=== PATIENT | female | born 1950 | race Caucasian/White ===

== ENCOUNTER 2024-05-20 22:01 | Inpatient (IN) | payer MEDICARE, SELFPAY ==
[2024-05-20] VITALS (54 sets, daily range): BP systolic 70–136; BP diastolic 25–76
[2024-05-20] MEDS: NSS 1000 IV ×3 (16:17→23:48)
--- NOTE | 2024-05-20 16:19 | ED.GENMED ---
History of Present Illness
General
Chief Complaint: Abdominal Symptoms
Time Seen by Provider: 05/20/24 16:07
History of Present Illness
History of Present Illness:
73-year-old female with history of CKD, CVA, hypertension presenting to the emergency department for concern of 'bowel perforation '. Patient arrives from nursing facility where she had an outpatient CT of her abdomen completed on 05/10, resulted
today with concern of bowel perforation. Patient has a abdominal wound, dressed. She is a limited historian given prior history of CVA and suspected underlying dementia. No additional history obtained at this time.
Phy Exam
Physical Exam
Physical Exam:
General: Well-appearing, no clinical signs of dehydration, nontoxic and in no acute distress
HEENT: protecting airway
Neck: appears supple
CV: Normal heart rate, regular rhythm
Resp: No accessory muscle use, no increased work of breathing, lungs clear to auscultation bilaterally
Abd: Soft and non-distended, open abdominal wall wound, purulent drainage upon palpation.
Extremities: No deformities, no swelling, no erythema, pulses and sensation intact
Neuro: alert, disoriented to place and time
: deferred
Rectal: deferred
Psych: Normal affect
Skin: Intact
Course
Orders/Labs/Results
Orders:
Orders
05/20/24 Dinner
NPO
Allow oral meds: Yes
Allow clear liquids: Sips of Clears
05/20/24 16:07
Electrocardiogram (*1) Urgent
Reason for Study: Other
Other Reason for Exam: bowel perf
EKG- Treatment ONCE
05/20/24 16:08
CT Abd/pelvis W Iv Cont Urgent
Comment:
Reason For Exam: draining abdominal wound, unclear hx
05/20/24 16:14
0.9% Sodium Chloride 1000 ml [Nss] 1,000 ml IV BOLUS
05/20/24 16:18
CMP [Comprehensive Metabolic Panel] Urgent
Complete Blood Count/With Diff Urgent
Lactic Acid Q4H
Comment: CANCEL 2nd LACTIC ACID IF 1st LACTIC ACID IS LESS THAN 2
Manual Differential Urgent
PTT Urgent
Prothrombin Time Urgent
Troponin I Urgent
Blood Culture Q30M
NIDA Source: Blood/Venous
Specimen Description:
Blood Culture Q30M
NIDA Source: Blood/Venous
Specimen Description:
05/20/24 16:35
Straight Cath As Directed
Frequency: One time now
05/20/24 16:36
Urinalysis Reflex To Culture Urgent
Date Specimen was Collected: 05/20/24
Time Specimen was Collected: 16:35
05/20/24 17:13
0.9% Sodium Chloride 1000 ml [Nss] 1,000 ml IV BOLUS
05/20/24 19:31
NORepinephrine 4 MG/250 ML [Levophed] 4 mg in 250 ml .ROUTE .STK-MED
Piperacillin/Tazo 4.5 Gram [Zosyn] 4.5 gram in 100 ml IV NOW
05/20/24 19:45
NORepinephrine 4 MG/250 ML [Levophed] 4 mg in 250 ml IV PER PROTOCOL
Initial dose in mcg/min, then titrate:: 2
Titrate to keep:: MAP > 65 mmHg
Titrate by mcg/min:: 1-2 mcg/min
Frequency of titrations (minutes):: 5
Maximum dose in ICU in mcg/min:: 30
Maximum dose in IMU in mcg/min:: 8
Maximum dose in IVU in mcg/min:: 4
Begin to taper infusion when:: Remained at goal for 4hrs
Taper by mcg/min:: 1-2 mcg/min
Frequency of taper (minutes) if patient maintains goal:: 30
Taper to off?: Yes
If infusion off & no longer maintaining goal:: Contact Provider
05/20/24 20:16
Vancomycin [Vancocin] 1,500 mg 0.9% Sodium Chloride 500 ml [Nss] 500 ml IV NOW
05/20/24 21:26
Admit/Transfer Patient As Directed
Co-Sign Provider:
Level of Care: Inpatient admission
Assign to:: ICU
Physician / Group: ben
Diagnosis: sepsis associated abdominal wall hernia site
Reason for Hospitalization: sepsis associated abdominal wall hernia site
Expected length of stay greater than two midnights?: Yes
ELOS- Estimated Length of Stay in days: 2
I certify the patient meets the requirements for IP care: Yes
PRN Pain Medication Management As Directed
May give lesser potent ordered pain med per pt: Yes
preference::
Protocol:: Medication orders for pain may be administered in a
manner that supports deferring to patient preference
when the pt is:
- Requesting an ordered lesser potent pain medication.
Least to most potent pain medications are defined
as: acetaminophen < NSAID < tramadol < opioids
(morphine, oxycodone, hydromorphone).
- Requesting a lesser dose of the same medication IF
ORDERED.
- Requesting a less intrusive route of administration
if both routes are prescribed by the provider (PO <
IV).
05/20/24 21:27
Code Status As Directed
Resuscitation Status: Full Code
05/20/24 21:54
Code Status As Directed
Resuscitation Status: Do not resuscitate
Reached after discussion with pt or family/Healthcare POA: Yes
DNR Bracelet Application ONCE
05/20/24 22:00
Flush (0.9% Sodium Chloride) [Flush (Nss)] See Dose Instructions IV PER PROTOCOL
05/20/24 22:50
0.9% Sodium Chloride 1000 ml [Nss] 1,000 ml IV 80 mls/hr
Acetaminophen [Tylenol] 650 mg PO Q4HPRN PRN
Atorvastatin [Lipitor] 40 mg PO HS
Bisacodyl [Dulcolax] 10 mg RECTAL DAILYPRN PRN
Guaifenesin Solution [Robitussin] 100 mg PO Q6HPRN PRN
Magnesium Hydroxide [Milk of Magnesia] 30 ml PO [id number] PRN
Phosphate Enema [Fleet Phosphate Enema-Adult] 118 ml RECTAL DAILYPRN PRN
05/20/24 22:50
Activity As Directed
Activity Level: As Tolerated
Vital Signs As Directed
Frequency: Per unit guidelines
DX Deep Vein Thrombosis Video Routine
05/21/24 02:00
Piperacillin/Tazo 3.375 Gram [Zosyn] 3.375 gram in 50 ml IV Q6H
05/21/24 03:28
Complete Blood Count/With Diff IN AM
Comprehensive Metabolic Panel IN AM
05/21/24 06:00
Levothyroxine [Synthroid] 150 mcg PO DAILY @ 0600
05/21/24 08:00
Ammonium Lactate 12% [Lac Hydrin, Am Lactin Lotion] See Dose Instructions TOPICAL BID
Aspirin Chewable [Low Strength Aspirin] 81 mg PO DAILY
Citalopram [Celexa] 20 mg PO DAILY
Heparin 5,000 units SC Q12
Loratadine [Claritin] 10 mg PO DAILY
Zinc Oxide 20% [Zinc Oxide Ointment] See Dose Instructions TOPICAL BID
menthol [Icy Hot (menthol)] See Dose Instructions TOPICAL DAILY
Abnormal Lab Results
05/20/24 05/20/24
16:18 16:36
RBC 2.98 L 10^6/uL
(4.20-5.40)
Hgb 8.5 L g/dL
(12.0-16.0)
Hct 27.0 L %
(37.0-47.0)
MCHC 31.5 L g/dL
(33.0-37.0)
RDW 18.1 H %
(11.5-14.5)
Lymphocytes (Manual) 10 L %
(20-51)
Monocytes (Manual) 19 H %
(2-9)
Eosinophils (Manual) 8 H %
(0-6)
PT 14.7 H Sec
(11.4-14.6)
Sodium 130 L mmol/L
(135-145)
Chloride 96 L mmol/L
(98-107)
BUN 29 H mg/dl
(7-17)
Glucose 103 H mg/dl
(70-99)
AST 11 L U/L
(14-36)
Total Protein 5.7 L g/dl
(6.3-8.2)
Albumin 2.7 L g/dl
(3.5-5.0)
Urine Urobilinogen 2+ A
(Neg - 1+)
05/20/24 16:18
05/20/24 16:18
Vital Signs
Initial and Last Documented VS:
Initial Vital Signs
Temp Pulse Resp BP Pulse Ox
100.4 F H 90 18 74/45 97
05/20/24 16:08 05/20/24 16:08 05/20/24 16:08 05/20/24 16:08 05/20/24 16:08
Last Documented Vital Signs
Temp Pulse Resp BP Pulse Ox
98.7 F 73 24 101/49 97
05/22/24 07:42 05/22/24 05:45 05/22/24 05:45 05/22/24 05:30 05/22/24 05:30
Procedures
Central Line
Left Femoral:
Indication for procedure:: hypotension
Procedure completed by: Sofya Sahni DO
Consent form signed: Yes
Anesthesia: 1% Lidocaine
Central line lumen: triple
Number of attempts: 1
Central line complications: none
Sterile dressing applied?: Yes
MDM/Problems Addressed
MDM/Problems Addressed:
73-year-old female with history of CKD, prior CVA, hypertension presenting for concern of intra-abdominal abnormality from nursing facility. Vital signs on arrival significant for low-grade fever and hypotension.
On exam patient is very limited historian given chronic medical history. Patient arrives with paperwork, however was allegedly sent in for abnormal outpatient CT. No CT imaging provided. Did call nursing facility, spoke to nursing living supervisor who
was unaware of abnormal CAT scan and could not find in her chart. Tried to call patient's POA, with no answer. Patient with large abdominal wound, actively draining purulent fluid. Concern for intra-abdominal infection, tracking to external
space, particularly with presenting vital signs, meeting SIRS criteria. Plan for septic workup including laboratory, cultures, IV fluids, CT abdominal imaging.
16:30 -patient's blood pressure has been fluid responsive. Lactic acid within normal limits. No leukocytosis. Pending CT imaging.
20:40 -CT shows a previous anterior abdominal wall hernia with complex collection abscess at repair site. Did reach her cousin who said the hernia was done about a year ago, unsure which hospital, is preferring that patient be manage facility. He
reports that she has been on oral antibiotics at the nursing facility. IV antibiotics ordered. Did discuss with surgery. Patient currently on Levophed with hypotension. Will plan for central line.
*Critical Care Note
Total Time (30-74mins, 75-104mins- exclusive of procedures): 62
comment:
The high probability of a clinically significant, sudden or life threatening deterioration of the septic shock requiring pressors system(s) required my full and direct attention, intervention and personal management. The aggregate critical care time
was 62 minutes. This time is in addition to time spent performing reported procedures but includes the following:
[x] Data Review and interpretation
[x] Patient assessment and monitoring of vital signs
[x] Documentation
[x] Medication orders and management
ED Attending Note
-
Portions of this chart may have been created with voice recognition software.� Occasional wrong word or��sound alike� substitutions may have occurred due to the inherent limitations of voice recognition software.
Discharge Plan
Departure
Patient Disposition: Admit
Date of Disposition: 05/20/24
Time of Disposition: 21:19
Presentation/result/management discussed w/ accepting MD/DO: Hospitalist
Patient with high blood pressure during this ER visit?: No
Condition: Critical
Discharge Problem:
Intra-abdominal abscess, Septic shock
Interventions
Interventions:
*General Assessment Last Done: 05/20/24 16:08
*Neglect/Abuse Screening Last Done: 05/20/24 16:08
ED- Fall Risk Assessment Last Done: 05/20/24 17:05
*ED COVID-19 Vaccine History Last Done: 05/20/24 16:08
*Nursing Disposition Last Done: 05/20/24 22:50
IA-Eoukij-Xoyvbgdkos Assessment Last Done: 05/20/24 16:08
Discharge Date and Time
Discharge Date/Time: 05/20/24 22:50
[2024-05-20 16:31] LABS: Hemoglobin 8.5 g/dL (12.0-16.0); Mean Corp Hgb Conc. 31.5 g/dL (33.0-37.0); Mean Corpuscular Hgb 28.5 pg (27.0-31.0); Mean Corpuscular Volume 90.6 fL (81.0-99.0); Mean Platelet Volume 9.9 fL (7.4-10.4); Platelet Count 245 10^3/uL (130-400); Red Blood Cell Count 2.98 10^6/uL (4.20-5.40); Red Cell Dist. Width 18.1 % (11.5-14.5); White Blood Cell Count 4.8 10^3/uL (4.8-10.8)
[2024-05-20 16:38] LABS: Lactic Acid 1.8 mmol/L (0.7-2.0)
[2024-05-20 16:39] LABS: INR 1.09; PT 14.7 Sec (11.4-14.6)
[2024-05-20 16:40] LABS: APTT 30.4 Sec (23.4-35.0)
[2024-05-20 16:43] LABS: ALT (SGPT) 12 U/L (0-35); AST (SGOT) 11 U/L (14-36); Albumin 2.7 g/dl (3.5-5.0); Alkaline Phosphatase 83 U/L (38-126); Blood Urea Nitrogen 29 mg/dl (7-17); Calcium 9.4 mg/dl (8.4-10.2); Carbon Dioxide 29 mmol/L (22-30); Chloride 96 mmol/L (98-107); Glucose 103 mg/dl (70-99); Potassium 3.7 mmol/L (3.5-5.1); Sodium 130 mmol/L (135-145); Total Bilirubin 0.7 mg/dl (0.2-1.3); Total Protein 5.7 g/dl (6.3-8.2); eGFR > 60.00
[2024-05-20 16:48] LABS: Absolute Neutrophils -Man Diff 2.9 10^3/uL (1.4-6.5); Band Neutrophils 1 % (0-3); Eosinophils 8 % (0-6); Lymphocytes 10 % (20-51); Monocytes 19 % (2-9); Normal RBC Morphology No; Platelets Checked Yes; Segmented Neutrophils 61 % (42-75)
[2024-05-20 16:49] LABS: Anisocytosis 1+; Hypochromasia 1+; Poikilocytosis 1+; Total Cells Counted 100
[2024-05-20 16:50] LABS: Acanthocytes 1+; Ovalocytes 1+; Polychromasia Slight; Troponin I < 0.012 ng/ml
[2024-05-20 17:04] LABS: Urine Albumin Negative (Neg - Trace); Urine Bilirubin Negative (Negative); Urine Character Clear (Clear); Urine Color Amber; Urine Glucose Negative (Negative); Urine Ketone Negative (Negative); Urine Leukocyte Negative (Negative); Urine Nitrite Negative (Negative); Urine Occult Blood Negative (Negative); Urine Specific Gravity 1.015 (<1.030); Urine Urobilinogen 2+ (Neg - 1+)
[2024-05-20] MEDS: LEVOPHED 250 IV (19:39)
--- NOTE | 2024-05-20 20:08 | EDRN ---
Vancomycin requested from pharmacy at this time.
[2024-05-20] MEDS: ZOSYN 100 IV (20:10)
[2024-05-20] MEDS: VANCOCIN 530 MG IV (20:30)
--- NOTE | 2024-05-20 21:32 | HPS.HSE ---
Addendum entered and electronically signed by Aditya Palacios MD 05/20/24 21:54:
Correction-as per Arielle who is the patient's [id number] patient is DNR
Original Note:
Family Physician
-
Family Physician: Marito Gillis
Chief Complaint
-
abnormal CT
History of Present Illness
73-year-old female past medical history of CHF, hypertension, hypothyroidism, right temporal glioma s/p resection x 2, volvulus status post left hemicolectomy and subsequent ostomy reversal with postoperative A-fib once, acute blood loss anemia,
nonobstructive CAD, prior CVA, overactive bladder, presenting with abnormal CT scan with concern for bowel perforation. She did not arrive with CT scan result.
As per patient's [id number] patient had anterior abdominal wall hernia several years ago not sure where possibly [facility].
Over the past 2 weeks patient has had discharge from her superficial wound on her abdomen. She was started on oral antibiotics. Physician ordered a CT abdomen pelvis result which showed concern for bowel perforation and she was referred to the
emergency room.
Patient asleep and not willing to provide any information at this time. She denies any abdominal pain.
Patient was living independently until December since then she has had worsening cognitive decline particularly over the past few months and cannot ambulate them independently or feed herself.
She does not smoke or drink alcohol.
Medical History
Past Medical History
Past Medical History: Reports Other (CHF, hypertension, hypothyroidism, right temporal glioma s/p resection x 2, volvulus status post left hemicolectomy and subsequent ostomy reversal with postoperative A-fib once, acute blood loss anemia,
nonobstructive CAD, prior CVA, overactive bladder,)
Past Surgical History: Reports Other (Resection of right temporal glioma, hemicolectomy secondary to volvulus, colostomy reversal, appendectomy, incisional hernia repair, x 2,)
Social History
Unable to obtain full social history at this time due to: Acuity
Family History
Family History: Not pertinent
Allergies / Home Medications
Allergies reflects when Allergies were last updated in Table[facility].
Home Medications with original date entered in Table8
Allergy/Medication List:
Allergies
Allergy/AdvReac Type Severity Reaction Status Date / Time
No Known Allergies Allergy Unverified 05/20/18 21:12
Home Medications
acetaminophen 325 mg tablet 650 mg PO Q4HPRN PRN mild pain/fever>101 05/20/24
ammonium lactate 12 % topical cream 1 applic topical BID B/L feet 05/20/24
aspirin 81 mg chewable tablet 81 mg PO DAILY 05/20/24
atorvastatin 40 mg tablet 40 mg PO HS 05/20/24
bisacodyl 10 mg rectal suppository 10 mg MI DAILYPRN PRN no bm 24 hours after mom 05/20/24
citalopram 20 mg tablet 20 mg PO DAILY 05/20/24
furosemide 20 mg tablet 20 mg PO [id number] 05/20/24
guaifenesin 100 mg/5 mL oral liquid 100 mg PO Q6HPRN PRN cough 05/20/24
levocetirizine 5 mg tablet 5 mg PO DAILY 05/20/24
levothyroxine 150 mcg tablet 150 mcg PO DAILY 05/20/24
magnesium hydroxide 400 mg/5 mL oral suspension 30 ml PO [id number] PRN no bm 3 days 05/20/24
menthol 5 % topical patch (Icy Hot (menthol)) 1 patch topical DAILY left shoulder 05/20/24
sodium phosphates 19 gram-7 gram/118 mL enema (Fleet Enema) 118 ml MI DAILYPRN PRN no bm 24 hours after bisacodyl 05/20/24
zinc oxide 10 % topical cream 1 applic topical BID B/L buttocks 05/20/24
Review of Systems
-
History Source: Patient
A 12 point ROS was completed and negative except as noted: Yes
Constitutional: Reports No Symptoms
EENT: Reports No Symptoms
Respiratory: Reports No Symptoms
Cardiac: Reports No Symptoms
Abdomen/GI: Reports No Symptoms
: Reports No Symptoms
Musculoskeletal: Reports No Symptoms
Skin: Reports No Symptoms
Neurological: Reports No Symptoms
Endocrine: Reports No Symptoms
Hematologic/Lymphatic: Reports No Symptoms
Psych: Reports No Symptoms
Physical Exam
Vital Signs
Vital Signs
Temp Pulse Resp BP Pulse Ox
100.4 F H 77 20 115/48 95
05/20/24 16:08 05/20/24 21:25 05/20/24 21:25 05/20/24 21:25 05/20/24 21:25
Physical Exam
General: Well Developed, Well Nourished and No Apparent Distress
HEENT: NormoCephalic, Moist mucous membranes and Atraumatic
Respiratory: Clear
Cardiac: S1/S2 and Regular Rhythm; No Murmur or Rub
GI: Soft, Non Tender, Non Distended and Normal Bowel Sounds; No Organomegaly
Rectal: Deferred by Provider
Musculoskeletal: No Clubbing, No Cyanosis and No Edema
Skin: No Rash
Neuro: Nonfocal/grossly intact
Laboratory Results
-
05/20/24 16:18
05/20/24 16:18
Laboratory Results
PT 14.7 Sec (11.4-14.6) H 05/20/24 16:18
INR 1.09 05/20/24 16:18
APTT 30.4 Sec (23.4-35.0) 05/20/24 16:18
Lactic Acid 1.8 mmol/L (0.7-2.0) 05/20/24 16:18
Lactic Acid Cancelled 05/20/24 16:18
Total Bilirubin 0.7 mg/dl (0.2-1.3) 05/20/24 16:18
AST 11 U/L (14-36) L 05/20/24 16:18
ALT 12 U/L (0-35) 05/20/24 16:18
Alkaline Phosphatase 83 U/L (38-126) 05/20/24 16:18
Troponin I < 0.012 ng/ml 05/20/24 16:18
Data Reviewed
-
Lab Data: Labs Reviewed by me
Old Records: Reviewed
Impression/Plan
-
IMPRESSION:
PLAN:
# Sepsis (fever, initial hypotension ) secondary to abdominal wound with purulent drainage secondary to abscess at prior abdominal wall hernia repair site
-Superficial wound with serosanguineous discharge and foul-smelling
-CT shows metallic coils demonstrated around umbilicus related to prior hernia repair, abdominal wall collection 13 cm x 8 cm x 3 cm containing gas and fluid with air-fluid level, mild associated soft tissue stranding, few tiny foci of gas within
the anterior abdominal wall subcutaneous fat consistent with abscess
-There are also numerous loops of bowel which appear to be adherent to the adjacent peritoneal margin however no evidence of bowel obstruction
-No evidence of perforation
-Check blood cultures
-IV fluids
-Vancomycin/Zosyn
-Central line to be placed by ER
-Levophed
-Unknown where patient had abdominal wall hernia repair 8 months ago and patient's cousin would like her to be admitted here
-General Surgery consulted
Chronic anemia
-Hemoglobin stable at 8.5
Nonobstructive CAD
-Continue aspirin, statin
History of heart failure
-Hold Lasix
Essential hypertension
Chronic bronchitis
Hypothyroidism
-Continue levothyroxine
Overactive bladder
History of right temporal glioma s/p resection x 2 in 2004, 2006 [facility]
History of volvulus status post left hemicolectomy in 2002, with colostomy reversal
History of appendectomy
History of incisional hernia repair
Prior CVA
Likely underlying dementia/depression
-Continue citalopram
Full code
DVT prophylaxis�heparin
N.p.o.
--- NOTE | 2024-05-20 23:12 | PHA.VAN.IN ---
Assessment
- Assessment
Renal Function: Appears similar to baseline
Maximum Temperature: 100.4 - 05/20/24 16:08
Concomitant Antimicrobials: piperacillin/tazobactam
AUC Dosing Plan
- Dosing Variables
Dosing Weight (kg): 83.5
Dosing CrCl (ml/min): 88
Vd coefficient (L/kg): 0.7
- Empiric Dosing
Initial / Loading Dose: 1500 mg - 05/20 20:30
Maintenance Regimen: 1000 mg q12h - to start 05/21 0600
Estimated AUC (mcg*h/mL): 468
Estimated Peak (mcg*h/mL): 28.3
Estimated Trough (mcg/ml): 12.5
Estimated Half Life (H): 8.9
- Monitoring
No levels ordered at this time: consider levels after 4th or 5th dose
Pharmacokinetics Vancomycin I
- -
Patient Age: 73
Patient Sex: Female
Vancomycin Day #: 1
Indication: Gi / Intra-Abdominal
Requesting Provider: Suzanne
Height / Weight:
Height 5 ft 6 in
Actual Weight 83.5 kg
- Vital Signs / Lab Results
Temp Pulse Resp BP Pulse Ox
100.4 F H 79 22 124/66 99
05/20/24 16:08 05/20/24 23:07 05/20/24 23:07 05/20/24 23:06 05/20/24 22:45
Lab Results - Hematology
05/20/24
16:18
WBC 4.8
Band Neutrophils 1
Lab Results - Chemistry
05/20/24
16:18
BUN 29 H
Creatinine 0.6
Albumin 2.7 L
05/20/24 05/20/24 05/20/24
16:15 16:18 16:18
Lactic Acid Cancelled Cancelled 1.8
Lab Results - Urine
05/20/24
16:36
Urine Nitrite (Reflex) Negative
Leukocyte Esterase Rfl Negative
--- NOTE | 2024-05-20 23:31 | PTCARENOTE ---
On assessment pt AAOx1, able to say her name but unsure where she is and her date of , pt only able to follow some commands but is lethargic at this time, Levo gtt infusing per orders, MAPs in the 70s, 94% 2L NC, incontinent of urine, ABD wound
with drainage noted, small open wound on R buttocks foam applied, B/L feet discolored and boggy but blanchable, also very dry and flaky, call vásquez in reach and bed alarm on
[2024-05-20] MEDS: LIPITOR PO (23:46)
--- NOTE | 2024-05-20 23:51 | W.PN.SEPSIS ---
Sepsis
Vital Signs
Temp Pulse Resp BP Pulse Ox
100.4 F H 78 21 114/60 94
05/20/24 16:08 05/20/24 23:15 05/20/24 23:15 05/20/24 23:15 05/20/24 23:37
Physical Exam
Physical Exam:
A focused exam was performed after fluid resuscitation.
Capillary Refill
Bilateral Upper Extremity:
Rosa Elena Time: Less than 3 sec
Bilateral Lower Extremity:
Rosa Elena Time: Less than 3 sec
Pulse Evaluation
Bilateral Radial:
Pulse Evaluation: Present
Bilateral Dorsalis Pedis:
Pulse Evaluation: Present
[2024-05-21] VITALS (60 sets, daily range): BP systolic 72–132; BP diastolic 42–73; BMI 27.6
[2024-05-21] MEDS: ZOSYN 50 IV ×4 (01:59→21:13)
[2024-05-21] MEDS: SYNTHROID PO (02:02)
[2024-05-21 03:34] LABS: Venous Blood Gas B.E. -0.3 mmol/L (-4 to +4); Venous Blood Gas HCO3 24.8 mmol/L (22-27); Venous Blood Gas O2 Sat % 94.9 %; Venous Blood Gas pCO2 42 mmHg (35-48); Venous Blood Gas pH 7.38 (7.32-7.43); Venous Blood Gas pO2 66 mmHg (30-50)
[2024-05-21 03:39] LABS: Hematocrit 25.2 % (37.0-47.0); Hemoglobin 8.1 g/dL (12.0-16.0); Mean Corp Hgb Conc. 32.1 g/dL (33.0-37.0); Mean Corpuscular Hgb 28.5 pg (27.0-31.0); Mean Corpuscular Volume 88.7 fL (81.0-99.0); Mean Platelet Volume 9.5 fL (7.4-10.4); Platelet Count 261 10^3/uL (130-400); Red Blood Cell Count 2.84 10^6/uL (4.20-5.40); Red Cell Dist. Width 17.9 % (11.5-14.5)
[2024-05-21 03:52] LABS: Venous Blood Gas O2 Therapy ROOM AIR
--- NOTE | 2024-05-21 04:00 | PTCARENOTE ---
Titrating down on levo gtt, remains on fluids, pt appears to be resting in bed comfortably, bed alarm on and call vásquez in reach
[2024-05-21 04:24] LABS: ALT (SGPT) 11 U/L (0-35); AST (SGOT) 10 U/L (14-36); Albumin 2.4 g/dl (3.5-5.0); Alkaline Phosphatase 86 U/L (38-126); Blood Urea Nitrogen 20 mg/dl (7-17); Calcium 8.3 mg/dl (8.4-10.2); Carbon Dioxide 25 mmol/L (22-30); Chloride 102 mmol/L (98-107); Estimated Creatinine Clearance 88 ml/min; Glucose 132 mg/dl (70-99); Magnesium 1.8 mg/dl (1.6-2.3); Phosphorus 3.1 mg/dl (2.5-4.5); Sodium 132 mmol/L (135-145); Total Bilirubin 1.1 mg/dl (0.2-1.3); Total Protein 5.1 g/dl (6.3-8.2); eGFR > 60.00
[2024-05-21 05:17] LABS: Absolute Neutrophils -Man Diff 3.8 10^3/uL (1.4-6.5); Anisocytosis 1+; Band Neutrophils 5 % (0-3); Eosinophils 6 % (0-6); Hypochromasia 1+; Lymphocytes 11 % (20-51); Monocytes 14 % (2-9); Myelocytes 3 % (-); Normal RBC Morphology No; Platelets Checked Yes; Polychromasia 1+; Segmented Neutrophils 59 % (42-75)
[2024-05-21 05:18] LABS: Acanthocytes 1+; Basophilic Stippling 1+; Ovalocytes 1+; Total Cells Counted 100
[2024-05-21] MEDS: VANCOCIN 200 IV ×2 (05:40→18:19)
[2024-05-21] MEDS: KCL 270 MEQ IV ×2 (06:17→13:47)
[2024-05-21] MEDS: LEVOPHED 250 IV ×2 (06:29→19:37)
[2024-05-21] MEDS: ZINC OXIDE OINTMENT 1 APPLIC TOPICAL ×2 (07:41→21:14)
[2024-05-21] MEDS: HEPARIN 5000 UNITS SC ×3 (07:41→23:54)
[2024-05-21] MEDS: LAC HYDRIN, AM LACTIN LOTION 1 APPLIC TOPICAL ×2 (07:42→21:17)
--- NOTE | 2024-05-21 07:50 | PTCARENOTE ---
recd pt [id number] handoff bedside. assessed. 'let me sleep' denies pain, eyes closed when undisturbed. purewick in place, draining well clear yellow. abd dressing with fecal smelling brownish purulent slightly mucoid wet drainage. abd soft,
nontender. maintained NPO at present. both arms stiff, wrists with some contractures, resists moving. positioned to L, heels elevated.
--- NOTE | 2024-05-21 08:27 | CON.INTV ---
Consultation
Consultation Request
Date/Time Consultation Requested: 05/20/2024 - 2256
Date/Time Consultation Performed: 05/21/2024 - 819
Requesting Provider: Dr. Palacios
Performing Provider: Dr. Doyle
Reason for Consultation: Septic shock
Medical History
-
Chief Complaint: Abnormal CT scan
History of Present Illness:
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
hypertension and chronic HFpEF who presents from [facility] due to abnormal CT scan on 05/10/2024 which showed concerns for bowel perforation. CT scan result is not available. HPI performed from review of medical records as the
patient is generally noncommunicative and just wants to be left alone. Per the patient's lyrmub-kf-web, the patient has had an anterior abdominal wall hernia several years ago. Over the past 2 weeks the patient has had discharge from her
superficial wound on her abdomen. She was previously started on oral antibiotics and her physician at [facility] ordered a CT abdomen/pelvis which showed concern for bowel perforation and that is what brought her here to the hospital.
Apparently the patient was living independently until December of this year and then has had worsening cognitive decline and she cannot ambulate or live independently, or take care of herself. Initially in the ER the patient was febrile to 100.4 �F,
pulse rate 90, respiratory rate 18, blood pressure 74/45 and saturating 97% on room air. Labs showed normal WBC at 4.8, Hb 8.5, 8% eosinophils, serum sodium 130, serum albumin level 2.7, urinalysis negative for signs of UTI and TSH was low at 0.27.
Blood cultures were collected. CT abdomen/pelvis with IV contrast performed showing a complex collection consistent with an abscess at a previous anterior abdominal wall hernia repair site. Also cholelithiasis without CT evidence of
cholecystitis, and constipation with moderate to large fecal burden throughout the colon most pronounced in the rectosigmoid area. She was given 2 L IVF with NS 0.9% in the ER, as well as IV vancomycin/Zosyn. Unfortunately her blood pressure
remained low with SBP in the 70s and Levophed was started. She was admitted to the ICU for further care and molecular spectroscopist services consulted for additional management/recommendations.
When I saw the patient this morning she was resting in bed in no acute distress on Levophed at 3mcg/min with BP 106/54 and heart rate 69. Currently on room air saturating 95%. She was sleeping and easily arousable to voice and tactile stimulation
but would not interact with me or answer any of my questions. She appears in no acute distress.
PMHx: Right temporal glioma, mitral valve prolapse, severe mitral regurgitation, hypothyroidism, CAD, glioblastoma, depression, chronic bronchitis, sigmoid volvulus, chronic HFpEF, hypertension
PSHx: Mitral valve repair (05/2018 - annuloplasty ring, repair of MV chordae and posterior leaflet), resection of right temporal glioma x 2 (2004+2006), left hemicolectomy, colostomy reversal, appendectomy, hernia repair, x 2
Past Medical History
Past Medical History: Other (Above as per HPI)
Past Surgical History: Other (Above as per HPI)
Social History
Tobacco: Non-smoker
Alcohol: Occasional
Drug: None
Personal:
Living: With Family
Family History
Family History: Cancer (Father (unknown cancer)) and Other (Mother: Hypercholesterolemia)
Allergies / Home Medications
Allergies
Allergy/AdvReac Type Severity Reaction Status Date / Time
No Known Allergies Allergy Unverified 05/20/18 21:12
Home Medications
�Medication �Instructions �Recorded �Confirmed �Last Taken �Type
acetaminophen 325 mg tablet 650 mg PO Q4HPRN PRN mild 05/20/24 05/20/24 Unknown History
pain/fever>101
ammonium lactate 12 % topical cream 1 applic topical BID B/L feet 05/20/24 05/20/24 Unknown History
aspirin 81 mg chewable tablet 81 mg PO DAILY Blood Clot 05/20/24 05/20/24 Unknown History
Prevention/Tx
atorvastatin 40 mg tablet 40 mg PO HS High Cholesterol 05/20/24 05/20/24 Unknown History
bisacodyl 10 mg rectal suppository 10 mg [place] DAILYPRN PRN no bm 24 05/20/24 05/20/24 Unknown History
hours after mom
citalopram 20 mg tablet 20 mg PO DAILY Mental 05/20/24 05/20/24 Unknown History
Health/Anxiety
furosemide 20 mg tablet 20 mg PO MOWEFR Fluid 05/20/24 05/20/24 Unknown History
Retention/Swelling
guaifenesin 100 mg/5 mL oral liquid 100 mg PO Q6HPRN PRN cough 05/20/24 05/20/24 Unknown History
levocetirizine 5 mg tablet 5 mg PO DAILY Allergies 05/20/24 05/20/24 Unknown History
levothyroxine 150 mcg tablet 150 mcg PO DAILY Thyroid 05/20/24 05/20/24 Unknown History
magnesium hydroxide 400 mg/5 mL 30 ml PO [id number] PRN no bm 3 days 05/20/24 05/20/24 Unknown History
oral suspension
menthol 5 % topical patch (Icy Hot 1 patch topical DAILY left shoulder 05/20/24 05/20/24 Unknown History
(menthol))
sodium phosphates 19 gram-7 118 ml W[place] DAILYPRN PRN no bm 24 05/20/24 05/20/24 Unknown History
gram/118 mL enema (Fleet Enema) hours after bisacodyl
zinc oxide 10 % topical cream 1 applic topical BID B/L buttocks 05/20/24 05/20/24 Unknown History
Review of Systems
-
Unable to Obtain full review of systems at this time due to: Other (Patient noncommunicative)
Vitals / Labs / Diagnostic Testing
Vital Signs
Temp Pulse Resp BP Pulse Ox
97.9 F 65 19 118/55 96
05/21/24 07:50 05/21/24 07:15 05/21/24 07:15 05/21/24 07:00 05/21/24 06:15
Lab Data
05/21/24 03:28
Laboratory Results
05/20/24
16:18
PT 14.7 H
INR 1.09
APTT 30.4
Diagnostic Testing:
Physical Exam
-
HEENT: Normocephalic and Anicteric
Cardiovascular: S1/S2, Rub (negative) and Peripheral Edema (negative)
Respiratory: Wheeze (negative), Rales (negative), Rhonchi (negative) and Non-Labored Respirations
GI: Soft, Non Distended, Non Tender, Normal Bowel Sounds and Other (Malodorous drainage seen from dime sized fistula seen in left lower quadrant)
Neurology: Tremors (negative) and Other (Lethargic but easily arousable to voice/tactile stimulation)
Skin: Warm and Dry
General: Respiratory Distress (negative), Comfortable, Chills (negative) and Sweats (negative)
Assessment
-
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
bronchitis, hypertension and chronic HFpEF who presents from [facility] due to abnormal CT scan on 05/10/2024 which showed concerns for bowel perforation. CT scan result is not available. HPI performed from review of medical records
as the patient is generally noncommunicative and just wants to be left alone. Per the patient's aldesx-rt-ing, the patient has had an anterior abdominal wall hernia several years ago. Over the past 2 weeks the patient has had discharge from her
superficial wound on her abdomen. She was previously started on oral antibiotics and her physician at [facility] ordered a CT abdomen/pelvis which showed concern for bowel perforation and that is what brought her here to the hospital.
Apparently the patient was living independently until December of this year and then has had worsening cognitive decline and she cannot ambulate or live independently, or take care of herself. Initially in the ER the patient was febrile to 100.4 �F,
pulse rate 90, respiratory rate 18, blood pressure 74/45 and saturating 97% on room air. Labs showed normal WBC at 4.8, Hb 8.5, 8% eosinophils, serum sodium 130, serum albumin level 2.7, urinalysis negative for signs of UTI and TSH was low at 0.27.
Blood cultures were collected. CT abdomen/pelvis with IV contrast performed showing a complex collection consistent with an abscess at a previous anterior abdominal wall hernia repair site. Also cholelithiasis without CT evidence of
cholecystitis, and constipation with moderate to large fecal burden throughout the colon most pronounced in the rectosigmoid area. She was given 2 L IVF with NS 0.9% in the ER, as well as IV vancomycin/Zosyn. Unfortunately her blood pressure
remained low with SBP in the 70s and Levophed was started. She was admitted to the ICU for further care and molecular spectroscopist services consulted for additional management/recommendations.
Chronic conditions OPEN CLAIMS REPRESENTATIVE: Right temporal glioma, mitral valve prolapse, severe mitral regurgitation, hypothyroidism, CAD, glioblastoma, depression, chronic bronchitis, sigmoid volvulus, chronic HFpEF, hypertension
Impression:
#Septic shock in the setting of abdominal wall abscess
#Abdominal wall abscess at the site of prior abdominal wall hernia repair
#Sepsis with bandemia (5% bands seen on CBC from 05/21/2024)
#Chronic anemia (last Hb on file from 2018 was 8.8)
#Constipation with moderate�large fecal burden seen on CT abdomen/pelvis from 05/20/2024
#Hyponatremia likely due to reduced PO intake with hyperaldosteronism
#Hypoalbuminemia
#Abnormal TSH (low at 0.27 likely due to central hypothyroidism versus primary hyperthyroidism -I suspect the former in the setting of her acute illness)
#Hypothyroidism
#Nonobstructive CAD
#History of depression
#Chronic HFpEF
#History of mitral valve prolapse with severe mitral regurgitation s/p urgent mitral valve repair in the setting of refractory pulmonary edema (May 2018) c/b postoperative A-fib
#History of glioma x 2 s/p resection
Plan:
- Patient has a abscess at the site of prior abdominal wall hernia repair seen on imaging from CT abdomen/pelvis from 05/20/2024
- General Surgery consulted and discussion held with what is the best intervention to do, and we have agreed to have IR insert a percutaneous drain as opposed to going to the OR
- Continue with broad-spectrum antibiotics, currently on IV vancomycin/Zosyn --> suspect she will need at least 14 days of Abx; consider ID consult
- Wound care consult
- Follow-up blood cultures (collected 05/20/2024 � NGTD), + wound culture (collected today)
- Pain control
- Continue with vasopressors and titrate to maintain MAP>65
- If Levophed requirements increase >10 then start vasopressin
- Give albumin 25g 25% given her serum albumin level is 2.4 --> this should help her oncotic pressure and help get her off the pressors
- Continue IVF with NS 0.9% at 80cc/hr, however continue to closely monitor for shortness of breath as there was mild pulmonary vascular congestion seen on CXR from 05/21/2024, as well as tiny bilateral pleural effusions seen on CT abdomen/pelvis
from 05/20/2024
- Pt currently NPO --> after she gets this IR percutaneous drain, then patient can eat as long as cleared by surgery
- Patient shows moderate�large fecal burden and she is at risk of stercoral colitis --> start aggressive bowel regimen with Senokot and also give Dulcolax today
- May need suppository +/- enema if no bowel movement by tomorrow
- The issues that she is refusing PO medications
- If she continues to refuse treatment then perhaps discussing goals of care would be the next best option
- Maintain SpO2 >90-94%
- Aspiration precautions
- There appears to be pulmonary vascular congestion on CXR --> re-check echo
- Replete electrolytes with K>4, Mg>2
- Maintain euglycemia with goal BG 140-180
- Trend H/H and transfuse if needed to keep Hb>7g/dL; keep plt>20k, unless there is concern for bleeding then keep plt>50k
- prn nebulized bronchodilators - not currently bronchospastic
- Incentive spirometer encouraged 10x per hour for at least 4 hrs a day
- PT/OT
- DVT ppx: Start HSQ
Code status: DNR/DNI
Patient is critically ill on vasopressors and requires ICU level of care.
Critical care statement: A total of 42 minutes of critical care time was provided for this patient today. This includes management of unstable vital signs, evaluation of the patient at bedside, reviewing the patient's pertinent medical records
including radiographs, microbiology, laboratory evaluations, and discussion with primary team, consultants, pharmacy, nutrition, physical therapy, case management, charge nurse, critical care nursing, and respiratory therapy.
Data:
CT abdomen/pelvis with IV contrast 05/20/2024:
Previous anterior abdominal wall hernia repair. Currently, complex collection, consistent with abscess at the repair site, as described. Within the peritoneum adjacent to the posterior margin of the abscess, there are multiple loops of bowel which
appeared adherent to the adjacent peritoneal margin. No proximal obstruction.
Cholelithiasis without CT evidence of acute cholecystitis.
Constipation. Moderate to large fecal burden throughout the colon, most pronounced in the rectosigmoid colon.
Age indeterminate mild compression deformity of L5. Superior mild endplate compression deformity of L2, with increased sclerosis, suggesting possible acute or subacute component. Mild superior plate compression deformities of T12 and L1, age
indeterminate, though likely chronic.
CXR 05/21/2024:
1. Mild pulmonary vascular congestion. No large pleural effusion on either side
2. Mild cardiac enlargement.
--- NOTE | 2024-05-21 09:12 | W.PN.HOSP.TC ---
Today's Communication/Plan
-
See PN
Assessment / Plan
Assessment / Plan
73yo F with PMHx of dementia, HFpEF, HTN, hyporthyroidism, R temporal glioma s/p resection x2, volvulus s/p hemicolectomy and colostomy reversal, anemia, CAD, CVA, overactive bladder, Hx of Afib developed discharge from paraumbilical area with
wound, CT scan done as outpatient showing possible bowel perf, so patient sent to ER.
A/P
#Septic shock 2/2 ABdominal wall abscess with abdominal wall cellulitis
VAnco/Zosyn
Bcx
GenSx consult
Wean off pressors as per master control technician
Wound Cx
#Cholelithiasis with gall bladder sludge
outpatient monitoring
#Constipation
laxatives
#dementia, advanced
as per family - patient with progressive decline, needed assistance for feeding for the past couple of months
#HFpEF, chronic
concern for developing volume overload 2/2 IVF given for shock
Monitor for now, lasix if respiratory function deteriorates
decrease hydration
stop Lasix 22/2 hypotension
##Hypokalemia
follow and replete electrolytes
#Hypothyroidism
#essential HTN
check TSH
hold antihypertensives until BP improves
#Anemia chronic
follow CBC
Anemia w/u
DVT ppx hep
GI ppx PPI
DNR/DNI
I have spent at least 56min reviewing chart, test results, communication with consultants and direct patient care
Anticipated Discharge: > 48 hours
Subjective/Interval History
-
Date of Service: May 21, 2024
Objective Data
-
Labs:
Laboratory Results
05/21/24 05/21/24
03:28 12:00
WBC 6.0
Hgb 8.1 L
Hct 25.2 L
Plt Count 261
Sodium 132 L Pending
Potassium 3.0 L Pending
Chloride 102 Pending
Carbon Dioxide 25 Pending
BUN 20 H Pending
Creatinine 0.5 L Pending
Glucose 132 H Pending
Calcium 8.3 L Pending
Total Bilirubin 1.1
AST 10 L
ALT 11
Alkaline Phosphatase 86
Vital Signs:
Vital Signs
Temp Pulse Resp BP Pulse Ox
97.9 F 65 19 118/55 96
05/21/24 07:50 05/21/24 07:15 05/21/24 07:15 05/21/24 07:00 05/21/24 06:15
I&O
05/20/24 05/21/24 05/22/24
06:59 06:59 06:59
Intake Total 857.5 / 972.5 371.8 / 371.8
Output Total 550 / 550
Balance 307.5 / 422.5 371.8 / 371.8
Review of Systems
-
Unable to obtain full review of systems at this time due to: Dementia
History Source: Patient
All other systems: Reviewed and negative
Physical Exam
-
Respiratory: Clear to Auscultation
Cardiac: Regular Rhythm
GI: Soft and Other (transparent exudate from abd wound)
Musculoskeletal: No Clubbing, No Cyanosis and No Edema
Psych: Apparent Dementia
--- NOTE | 2024-05-21 09:30 | PHA.VAN.FU ---
Vancomycin Assessment / Plan
- Assessment
Renal Function: Stable
WBC's are: WNL
Concomitant Antimicrobials: piperacillin/tazobactam
- Dosing Plan
Continue: Vanc 1000mg Q12H
- Monitoring Plan
No level(s) ordered at this time: consider levels in next few days
- Follow Up
Pharmacy will continue to follow.
Vancomycin Follow UP
- -
Patient Age: 73
Patient Sex: Female
Vancomycin Day #: 2
Indication: Gi / Intra-Abdominal
Requesting Provider: Suzanne
Pertinent Antimicrobial Allergies:
NKDA
Height / Weight:
Height 5 ft 6 in
Actual Weight 77.6 kg
- Vital Signs / Lab Results
Temp Pulse Resp BP Pulse Ox
97.9 F 65 19 118/55 97
05/21/24 07:50 05/21/24 07:15 05/21/24 07:15 05/21/24 07:00 05/21/24 08:00
Lab Results - Hematology
05/20/24 05/21/24
16:18 03:28
WBC 4.8 6.0
Band Neutrophils 1 5 H
Lab Results - Chemistry
05/20/24 05/21/24
16:18 03:28
BUN 29 H 20 H
Creatinine 0.6 0.5 L
Estimated Creat Clear 88
Albumin 2.7 L 2.4 L
05/20/24 05/20/24 05/20/24
16:15 16:18 16:18
Lactic Acid Cancelled Cancelled 1.8
Lab Results - Urine
05/20/24
16:36
Urine Nitrite (Reflex) Negative
Leukocyte Esterase Rfl Negative
[2024-05-21] MEDS: CELEXA PO (09:52)
[2024-05-21] MEDS: CLARITIN PO (09:52)
[2024-05-21] MEDS: LOW STRENGTH ASPIRIN PO (09:53)
[2024-05-21] MEDS: NSS (PRESERVATIVE FREE) 10 ML IV (10:23)
[2024-05-21] MEDS: PROTONIX IV 40 MG IV (10:23)
[2024-05-21 11:06] LABS: TSH 0.27 uIU/ml (0.47-4.68)
[2024-05-21] MEDS: NSS 1000 IV (11:49)
[2024-05-21 12:52] LABS: Blood Urea Nitrogen 15 mg/dl (7-17); Calcium 8.3 mg/dl (8.4-10.2); Carbon Dioxide 25 mmol/L (22-30); Chloride 103 mmol/L (98-107); Estimated Creatinine Clearance 85 ml/min; Glucose 108 mg/dl (70-99); Potassium 3.5 mmol/L (3.5-5.1); Sodium 129 mmol/L (135-145); eGFR > 60.00
--- NOTE | 2024-05-21 13:12 | WOUNDNOTE ---
LEFT ABDOMINAL WOUND
--- NOTE | 2024-05-21 13:12 | WOUNDNOTE ---
PLANTAR ASPECT OF LEFT FOOT
--- NOTE | 2024-05-21 13:13 | WOUNDNOTE ---
RIGHT FOOT PLANTAR ASPECT
--- NOTE | 2024-05-21 13:13 | WOUNDNOTE ---
DORSAL ASPECT OF BILATERAL FEET
--- NOTE | 2024-05-21 13:20 | PTCARENOTE ---
seen by wound, positioned for comfort. when care is given, pt c/o being touched, continues to say 'I'm done.' purewick draining. labs drawn, results to Dr. Doyle
--- NOTE | 2024-05-21 13:27 | WOUNDNOTE ---
[facility] RN note: Patient admitted with sepsis
See H&P for complete history.
PMH: As noted in Physician note, dementia, HFpEF, HTN, hyporthyroidism, R temporal glioma s/p resection x2, volvulus s/p hemicolectomy and colostomy reversal, anemia, CAD, CVA, overactive bladder, Hx of Afib developed discharge from paraumbilical
area with wound, CT scan done as outpatient showing possible bowel perf, so patient sent to ER.
Wound Location and type/assessment: Patient admitted with left abdominal wound with purulent drainage. Awaiting surgical consult. Periwound is soft, drainage is small to moderate. Right buttock with friction appearing wound that is scabbed. Plantar
aspect of bilateral feet are dusky, but blanchable. Patient was admitted with bilateral stage 1 to heels. Patient was agreeable to assessment, but stated during assessment that she wanted to be left alone.
Appetite: Poor, needs assistance feeding.
Pressure redistribution devices in place: Centrella Max Air, turning schedule, heels off-loaded with pillows under calves
Plan: Keep left upper abdominal wound clean and dry and await surgical consult for plan. Right buttock wound dressing maintained with silicone border foam. No-sting barrier and adhesive foam applied to heels. Will confirm orders with hospitalist
and update nurse. Updated care plan and will follow as needed.
Note to case management of equipment requested for discharge: Air mattress
Recommend follow up at wound care center upon discharge.
[2024-05-21] MEDS: MAGNESIUM SULFATE 50 IV (13:48)
--- NOTE | 2024-05-21 14:04 | PTCARENOTE ---
family Arielle Wagoner phoned, updated. Her availability forwarded to providers for updates; IR on phone, confirmed NPO status possibly for drain later this pm.
--- NOTE | 2024-05-21 14:18 | CON.GS ---
Medical History
-
Chief Complaint: Abdominal infection
History of Present Illness:
Patient is a 73-year-old female who resides in a fpc facility secondary to history of dementia. She has a remote history of having undergone hernia repair with mesh. Patient's [id number] states that this was in the more distant
past. She also subsequently had a sigmoid volvulus requiring resection which sounds like this occurred in 2018 and was after her prior hernia repairs.
Mgpudz-[id number] does not recall any wounds or infectious complications in the current area. At her fpc facility a couple weeks ago purulent drainage was noted from the abdominal wall around the umbilical area. She was treated with a 1 to
2-week course of oral antibiotics but it did not improve. Outpatient CT imaging was obtained yesterday concerning for abdominal wall infection and possible fistulous communication to the bowel prompting transport to the emergency department for
evaluation.
Patient oriented to self but is confused. She is requesting that I not examine her but denies pain. Patient is unable to provide additional history.
Past Medical History
Past Medical History: Other (Advanced dementia, hypothyroidism, chronic anemia, CHF, hypertension, right temporal glioma s/p resection x 2 history of CVA, overactive bladder, nonobstructive CAD)
Past Surgical History: Other (Right temporal glioma resection x 2, sigmoidectomy secondary to volvulus, colostomy reversal, appendectomy, incisional hernia repairs, x 2)
Allergies / Home Medications
Allergy/AdvReac Type Severity Reaction Status Date / Time
No Known Allergies Allergy Unverified 05/20/18 21:12
�Medication �Instructions �Recorded �Confirmed �Type
acetaminophen 325 mg tablet 650 mg PO Q4HPRN PRN mild 05/20/24 05/20/24 History
pain/fever>101
ammonium lactate 12 % topical cream 1 applic topical BID B/L feet 05/20/24 05/20/24 History
aspirin 81 mg chewable tablet 81 mg PO DAILY Blood Clot 05/20/24 05/20/24 History
Prevention/Tx
atorvastatin 40 mg tablet 40 mg PO HS High Cholesterol 05/20/24 05/20/24 History
bisacodyl 10 mg rectal suppository 10 mg RI DAILYPRN PRN no bm 24 05/20/24 05/20/24 History
hours after mom
citalopram 20 mg tablet 20 mg PO DAILY Mental 05/20/24 05/20/24 History
Health/Anxiety
furosemide 20 mg tablet 20 mg PO MOWEFR Fluid 05/20/24 05/20/24 History
Retention/Swelling
guaifenesin 100 mg/5 mL oral liquid 100 mg PO Q6HPRN PRN cough 05/20/24 05/20/24 History
levocetirizine 5 mg tablet 5 mg PO DAILY Allergies 05/20/24 05/20/24 History
levothyroxine 150 mcg tablet 150 mcg PO DAILY Thyroid 05/20/24 05/20/24 History
magnesium hydroxide 400 mg/5 mL 30 ml PO [id number] PRN no bm 3 days 05/20/24 05/20/24 History
oral suspension
menthol 5 % topical patch (Icy Hot 1 patch topical DAILY left shoulder 05/20/24 05/20/24 History
(menthol))
sodium phosphates 19 gram-7 118 ml RI DAILYPRN PRN no bm 24 05/20/24 05/20/24 History
gram/118 mL enema (Fleet Enema) hours after bisacodyl
zinc oxide 10 % topical cream 1 applic topical BID B/L buttocks 05/20/24 05/20/24 History
Review of Systems
-
Unable to obtain full review of systems at this time due to: Dementia and Acuity
History Source: Patient and Family
A 10 point review of systems was completed, and was negative except as per HPI.
Physical Exam
Vital Signs
Temp Pulse Resp BP Pulse Ox
98.6 F 61 15 87/45 97
05/21/24 12:00 05/21/24 11:45 05/21/24 11:45 05/21/24 11:30 05/21/24 11:45
05/20/24 05/21/24 05/22/24
06:59 06:59 06:59
Actual Weight 77.6 kg
Body Mass Index (BMI) 27.6
Lab Results
05/21/24 03:28
05/21/24 12:09
WBC 6.0 10^3/uL (4.8-10.8) 05/21/24 03:28
Hgb 8.1 g/dL (12.0-16.0) L 05/21/24 03:28
Hct 25.2 % (37.0-47.0) L 05/21/24 03:28
Plt Count 261 10^3/uL (130-400) 05/21/24 03:28
Physical Exam
General: Other (Resting in hospital bed intensive care unit comfortably. Responsive and oriented to self.)
HEENT: Normocephalic, Anicteric and Moist Mucous Membranes
Respiratory: Non Labored Respirations
Cardiac: Regular Rhythm
GI: Soft (Obese), Non Distended, Tender (Minimal tenderness palpation centrally. No rebound, no rigidity, no guarding) and Other (Opening sinus tract superior to the umbilicus at previous surgical scar. Serous purulent drainage none feculent)
Neuro: Awake and Alert
Psych: Calm and Confused
Data Reviewed
-
CT Scan: Image Personally Visualized and interpreted, Report Reviewed by me, Discussed with Physician, Discussed with Nurse, Discussed with Patient and Discussed with Family
Assessment / Plan
-
Assessment: 73-year-old female presenting with abdominal wall infection/abscess and draining purulent sinus tract.
CT imaging confirms sizable deep subcutaneous air fluid collection around the fascial layer immediately adjacent to probable previously placed mesh. Per [id number] mesh surgical procedure was years ago, colon surgery for volvulus was most recent
and in 2018. No interventions or surgeries since.
Given patient's dementia, DNR and stable abdominal examination without generalized peritonitis or even localized peritonitis there are no indications for urgent operative intervention. No radiographic evidence of free perforation either.
Differential diagnosis includes delayed presentation of chronic mesh infection/abdominal wall infection versus developing enterocutaneous fistula to mesh.
Plan: Consult IR for percutaneous drainage of abdominal wall abscess/fluid collection
Broad-spectrum antibiotics pending subsequent culture results
After discussions with patient's [id number] who is power of action installer she is in agreement with least invasive measures possible for care.
Will follow
--- NOTE | 2024-05-21 14:51 | CM ---
Addendum entered by Buddy Patino 05/22/24 08:22:
Correction from [facility] team. Pt does not ambulate, requires assistance with ADL. Recently lost her son. Sister in law and cousin heavily involved.
Original Note:
CM following re: discharge planning.
Reviewed pt's chart, met with pt.
Pt is a 73 year old female, admitted with primary dx of Sepsis.
Pt is not a great historian due to Dementia,kept her eyes closed 3 times during an attempt to interview the pt. Information obtained from [facility] procurement coordinator Yumiko. 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
care unit, ambulates with a walker, has a spouse with whom pt has been for years. Per procurement coordinator Yumiko, pt's spouse visiting the pt occasionally because pt expressed unhappy feelings seeing him.
Per procurement coordinator Yumiko, pt on bed hold and pt will be accepted back when medically stable.
D/C plan: return back to [facility] for a LTC.
CM will follow with discharge plan updates as hospitalization progresses
--- NOTE | 2024-05-21 16:02 | PTCARENOTE ---
transported to IR via bed. Levophed, fluids, and mag/kcl infusing.
[2024-05-21] MEDS: FLEXBUMIN 100 IV ×2 (18:18→21:13)
--- NOTE | 2024-05-21 18:49 | PTCARENOTE ---
returned from IR, ANTONIO drain intact, dressing occlusive, emptied for 20 ml fecal smelling bloody viscous fluid. incont BM, cleaned, holding on oral bowel meds at present. purewick changed, attends clean and dry, positioned for comfort. gavinoo
infusing, albumin as ordered, fluids and levophed as noted.
[2024-05-21] MEDS: LOW STRENGTH ASPIRIN 81 MG PO (19:08)
[2024-05-21] MEDS: CELEXA 20 MG PO (19:08)
--- NOTE | 2024-05-21 20:00 | PTCARENOTE ---
Received pt resting in bed, drowsy but arousable to verbal. Pt. answers simple questions with yes/no or nodding head. Denies pain or complaints. When providing care, pt. yelling out 'stop it' or 'get away from me.' SR on tele, HR 70s. On levophed to
maintain MAP>65. Afebrile. On RA, lungs diminished. Spo2 >94%. Difficult to pickle sorter pulse ox at times. Hypoactive bowel sounds. Abd dsg c/d/i. ANTONIO drain with green output. Purewick in place with yellow output. Heels and buttocks with foams c/d/i.
Turning q2. L fem TLC with levo, NS @ 80ml/hr per orders. Monitoring
[2024-05-21] MEDS: LIPITOR PO (23:10)
[2024-05-21] MEDS: SENOKOT-S PO (23:10)
[2024-05-22] VITALS (53 sets, daily range): BP systolic 89–132; BP diastolic 45–70; BMI 28.6
--- NOTE | 2024-05-22 | PTCARENOTE ---
Pt reassessed. Still difficult to obtain pulse ox but intermittently reading 89%. Placed on 2L NC. Bathed with CHG. No other changes
[2024-05-22] MEDS: ZOSYN 50 IV ×2 (01:51→07:35)
[2024-05-22] MEDS: NSS 1000 IV ×3 (01:53→20:35)
[2024-05-22 04:41] LABS: Absolute Neutrophils -Man Diff 2.3 10^3/uL (1.4-6.5); Band Neutrophils 1 % (0-3); Eosinophils 2 % (0-6); Hematocrit 22.1 % (37.0-47.0); Hemoglobin 6.7 g/dL (12.0-16.0); Lymphocytes 14 % (20-51); Mean Corp Hgb Conc. 30.3 g/dL (33.0-37.0); Mean Corpuscular Hgb 28.2 pg (27.0-31.0); Mean Corpuscular Volume 92.9 fL (81.0-99.0); Mean Platelet Volume 9.8 fL (7.4-10.4); Metamyelocytes 3 % (-); Monocytes 9 % (2-9); Myelocytes 4 % (-); Platelet Count 188 10^3/uL (130-400); Platelets Checked Yes; Red Blood Cell Count 2.38 10^6/uL (4.20-5.40); Red Cell Dist. Width 18.2 % (11.5-14.5); Segmented Neutrophils 65 % (42-75); Total Cells Counted 100; White Blood Cell Count 3.6 10^3/uL (4.8-10.8)
[2024-05-22 04:42] LABS: Anisocytosis 1+; Hypochromasia 1+; Normal RBC Morphology No; Polychromasia 1+
[2024-05-22 04:45] LABS: ALT (SGPT) < 10 U/L (0-35); AST (SGOT) 9 U/L (14-36); Albumin 2.7 g/dl (3.5-5.0); Alkaline Phosphatase 67 U/L (38-126); Blood Urea Nitrogen 10 mg/dl (7-17); Calcium 8.6 mg/dl (8.4-10.2); Carbon Dioxide 26 mmol/L (22-30); Chloride 103 mmol/L (98-107); Estimated Creatinine Clearance 85 ml/min; Glucose 108 mg/dl (70-99); Iron 21 ug/dl (37-170); LDH 161 U/L (120-246); Magnesium 2.4 mg/dl (1.6-2.3); Potassium 3.5 mmol/L (3.5-5.1); Sodium 133 mmol/L (135-145); Total Bilirubin 1.2 mg/dl (0.2-1.3); Total Protein 5.1 g/dl (6.3-8.2); eGFR > 60.00
[2024-05-22 04:46] LABS: Reticulocyte Count 2.9 % (0.4-2.8)
[2024-05-22 04:55] LABS: Percent Saturation 15 % (20-50); Total Iron Binding Capacity 140 ug/dl (265-497)
--- NOTE | 2024-05-22 04:58 | PTCARENOTE ---
Pt reassessed. Slept throughout the night when undisturbed. Weaned back to RA, spo2 93%. AM labs drawn. Hgb 6.7- RODEO CLOWN Abeba notified. Type/screen ordered and drawn. No s/s bleeding. Levo weaned to off.
[2024-05-22 05:50] LABS: Vitamin B12 365 pg/ml (239-931)
--- NOTE | 2024-05-22 06:04 | W.PN.UPDATE ---
Update Note
Progress Note Update
0600 hgb dropped to 6.7, type and screen done, left message with POA for consent, waiting for call back.
[2024-05-22] MEDS: SYNTHROID PO (06:08)
[2024-05-22] MEDS: VANCOCIN 200 IV (06:08)
--- NOTE | 2024-05-22 07:30 | PTCARENOTE ---
recd pt handoff in room, levophed restarted per parameters. awakens, arousable, tolerating room air. disagreeable at times 'stop that' 'I don't want it' 'I'm done' 'Leave me alone'. Support given, positioned for comfort. rest of assessment as
documented. abd dressing changed dark reddish thin fluid, ANTONIO compressed, foul odor. HH redrawn to verify, pending in lab.
[2024-05-22] MEDS: NSS (PRESERVATIVE FREE) 10 ML IV ×2 (07:36→21:14)
[2024-05-22] MEDS: PROTONIX IV 40 MG IV ×2 (07:36→21:13)
[2024-05-22] MEDS: LAC HYDRIN, AM LACTIN LOTION 1 APPLIC TOPICAL ×2 (07:37→20:37)
[2024-05-22] MEDS: ZINC OXIDE OINTMENT 1 APPLIC TOPICAL ×2 (07:37→20:37)
[2024-05-22] MEDS: SYNTHROID 150 MCG PO (07:48)
[2024-05-22] MEDS: SENOKOT-S 1 TABLET PO (07:49)
[2024-05-22] MEDS: CLARITIN 10 MG PO (07:49)
[2024-05-22 07:58] LABS: Hematocrit 20.7 % (37.0-47.0); Hemoglobin 6.5 g/dL (12.0-16.0)
[2024-05-22] MEDS: LOW STRENGTH ASPIRIN PO (08:03)
[2024-05-22] MEDS: HEPARIN SC (08:03)
--- NOTE | 2024-05-22 08:25 | W.PN.INTV ---
Addendum entered and electronically signed by Renato Doyle MD 05/22/24 18:09:
Given that patient is DNR/DNI and vasopressor requirements have remained stable all day, will downgrade to IMU level of care. Pulmonary service will continue to follow along briefly.
Original Note:
Today's Communication / Plan
Recommendations
Transfuse 1 unit PRBC and follow-up CBC s/p transfusion
Keep Hb >7 g/dL
Keep platelets >50 K
Wean down vasopressors as tolerated keeping MAP >65
Continue with ANTONIO drain from LLQ abdominal percutaneous drain
Broad-spectrum antibiotics
Follow-up fluid culture sensitivities (growing E. coli)
NPO unless cleared for diet per surgery
Will need RECOATING MACHINE OPERATOR eval prior to eating given poor mental status
She has been intermittently refusing PO medications and just wants to be left alone; it would not be unreasonable to discuss goals of care and discuss hospice
While she remains on full medical management, continue with ICU level of care for this critically ill patient on vasopressors
Assessment
-
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
bronchitis, hypertension and chronic HFpEF who presents from [facility] due to abnormal CT scan on 05/10/2024 which showed concerns for bowel perforation. CT scan result is not available. HPI performed from review of medical records
as the patient is generally noncommunicative and just wants to be left alone. Per the patient's hogjmh-zi-hjz, the patient has had an anterior abdominal wall hernia several years ago. Over the past 2 weeks the patient has had discharge from her
superficial wound on her abdomen. She was previously started on oral antibiotics and her physician at [facility] ordered a CT abdomen/pelvis which showed concern for bowel perforation and that is what brought her here to the hospital.
Apparently the patient was living independently until December of this year and then has had worsening cognitive decline and she cannot ambulate or live independently, or take care of herself. Initially in the ER the patient was febrile to 100.4 �F,
pulse rate 90, respiratory rate 18, blood pressure 74/45 and saturating 97% on room air. Labs showed normal WBC at 4.8, Hb 8.5, 8% eosinophils, serum sodium 130, serum albumin level 2.7, urinalysis negative for signs of UTI and TSH was low at 0.27.
Blood cultures were collected. CT abdomen/pelvis with IV contrast performed showing a complex collection consistent with an abscess at a previous anterior abdominal wall hernia repair site. Also cholelithiasis without CT evidence of
cholecystitis, and constipation with moderate to large fecal burden throughout the colon most pronounced in the rectosigmoid area. She was given 2 L IVF with NS 0.9% in the ER, as well as IV vancomycin/Zosyn. Unfortunately her blood pressure
remained low with SBP in the 70s and Levophed was started. She was admitted to the ICU for further care and gear milling machine set up operator services consulted for additional management/recommendations.
Chronic conditions GASOLINE PLANT OPERATOR: Right temporal glioma, mitral valve prolapse, severe mitral regurgitation, hypothyroidism, CAD, glioblastoma, depression, chronic bronchitis, sigmoid volvulus, chronic HFpEF, hypertension
Impression:
#Septic shock in the setting of abdominal wall abscess
#Abdominal wall abscess at the site of prior abdominal wall hernia repair s/p IR percutaneous drain placed 05/21/2024
#Sepsis with bandemia (5% bands seen on CBC from 05/21/2024)
#Chronic anemia (last Hb on file from 2018 was 8.8)
#Constipation with moderate�large fecal burden seen on CT abdomen/pelvis from 05/20/2024
#Hyponatremia likely due to reduced PO intake with hyperaldosteronism
#Hypoalbuminemia
#Subclinical hypothyroidism (TSH low at 0.27 with normal fT4 at 1.44 --> likely due to central hypothyroidism in setting of critical illness)
#Nonobstructive CAD
#History of depression
#Chronic HFpEF
#History of mitral valve prolapse with severe mitral regurgitation s/p urgent mitral valve repair in the setting of refractory pulmonary edema (May 2018) c/b postoperative A-fib
#History of glioma x 2 s/p resection
Plan:
- Patient has a abscess at the site of prior abdominal wall hernia repair seen on imaging from CT abdomen/pelvis from 05/20/2024
- General Surgery consulted and discussion held with what is the best intervention to do, and we have agreed to have IR insert a percutaneous drain as opposed to going to the OR
- IR placed a percutaneous drain on 05/21/2024 with drainage of 30 cc of malodorous fluid most consistent with liquid stool --> fluid Cx growing E. coli (follow-up sensitivities)
- Continue with broad-spectrum antibiotics, currently on IV vancomycin/meropenem s/p Zosyn (05/20-05/22) --> suspect she will need at least 14 days of Abx; ID consulted (recs pending)
- Wound care consult
- Follow-up blood cultures (collected 05/20/2024 � NGTD); abdominal wound culture growing GNR (suspect this will be same organism as the body fluid culture)
- Pain control
- Continue with vasopressors and titrate to maintain MAP>65
- If Levophed requirements increase >10 then start vasopressin
- s/p 2 doses of albumin 25g 25% on 05/21 given her serum albumin level was 2.4 --> this should help her oncotic pressure and help get her off the pressors
- IVF DC'd given she had mild pulmonary vascular congestion seen on CXR from 05/21/2024, as well as tiny bilateral pleural effusions seen on CT abdomen/pelvis from 05/20/2024
- Pt currently NPO --> defer diet to surgery; will need RECOATING MACHINE OPERATOR prior to eating given her poor mental status
- She is acutely anemic this morning on a.m. labs � being transfused 1 unit PRBC; follow-up CBC s/p transfusion with goal Hb >7g/dL; keep plt>50k
- She is not clinically bleeding
- Patient shows moderate�large fecal burden and she is at risk of stercoral colitis --> continue bowel regimen with Senokot; she has been intermittently refusing PO meds
- May need suppository +/- enema if no bowel movement by tomorrow
- If she continues to refuse treatment then perhaps discussing goals of care would be the next best option
- Maintain SpO2 >90-94%
- Aspiration precautions
- There appears to be pulmonary vascular congestion on CXR --> re-check echo (will be done today)
- Replete electrolytes with K>4, Mg>2
- Maintain euglycemia with goal BG 140-180
- prn nebulized bronchodilators - not currently bronchospastic
- Incentive spirometer encouraged 10x per hour for at least 4 hrs a day
- PT/OT
- DVT ppx: SCDs given acute anemia on AM labs today
Code status: DNR/DNI
Patient is critically ill on vasopressors and requires ICU level of care.
Critical care statement: A total of 38 minutes of critical care time was provided for this patient today. This includes management of unstable vital signs, evaluation of the patient at bedside, reviewing the patient's pertinent medical records
including radiographs, microbiology, laboratory evaluations, and discussion with primary team, consultants, pharmacy, nutrition, physical therapy, case management, charge nurse, critical care nursing, and respiratory therapy.
Data:
CT abdomen/pelvis with IV contrast 05/20/2024:
Previous anterior abdominal wall hernia repair. Currently, complex collection, consistent with abscess at the repair site, as described. Within the peritoneum adjacent to the posterior margin of the abscess, there are multiple loops of bowel which
appeared adherent to the adjacent peritoneal margin. No proximal obstruction.
Cholelithiasis without CT evidence of acute cholecystitis.
Constipation. Moderate to large fecal burden throughout the colon, most pronounced in the rectosigmoid colon.
Age indeterminate mild compression deformity of L5. Superior mild endplate compression deformity of L2, with increased sclerosis, suggesting possible acute or subacute component. Mild superior plate compression deformities of T12 and L1, age
indeterminate, though likely chronic.
CXR 05/21/2024:
1. Mild pulmonary vascular congestion. No large pleural effusion on either side
2. Mild cardiac enlargement.
Subjective Dataa
Subjective Data
Date of Service:
Date of Service: May 22, 2024
Chief Complaint: Gold And Silver Assayer Follow Up
Subjective:
Patient was seen and evaluated today at bedside. Received IR drain yesterday with 30 cc of malodorous fluid removed. Drain has feculent/foul smelling fluid coming out of it. Levophed was off overnight, and now restarted at 5mcg/min. Skin wound
culture from yesterday is growing gram-negative rods. Gram stain from fluid culture is growing GPCs and few GNR. Had bowel movement yesterday. She remains sleepy and arouses to verbal and tactile stimulation but is not interested in communicating
and just wants to be left alone.
Review of Systems
General: Other (Unable to obtain given patient's acute clinical status/noncommunicative)
Objective Data
Data Reviewed
Vital Signs / I&O / Oxygen:
Vital Signs
Temp Pulse Resp BP Pulse Ox
98.7 F 73 24 101/49 95
05/22/24 07:42 05/22/24 05:45 05/22/24 05:45 05/22/24 05:30 05/22/24 08:00
Intake and Output
05/21/24 05/22/24 05/23/24
06:59 06:59 06:59
Intake Total 857.5 / 1039.5 3346.9 / 3444.4 188.8 / 188.8
Output Total 550 / 550 2230 / 2230
Balance 307.5 / 489.5 1116.9 / 1214.4 188.8 / 188.8
SaO2 95
Nasal Cannula flow liters per 2
minute
Physical Exam
General: Respiratory Distress (negative), Comfortable, Chills (negative) and Sweats (negative)
HEENT: Normocephalic and Anicteric
Cardiovascular: S1-S2, Rub (negative), Peripheral Edema (negative) and Other (Bradycardic)
Respiratory: Wheeze (negative), Crackles (negative), Rhonchi (negative), Non-Labored Respirations and Stridor (negative)
GI: Soft, Non Distended, Non Tender, Normal Bowel Sounds and Other (Percutaneous drain in left lower quadrant with dark brown fluid in bulb)
Neurology: Tremors (negative) and Lethargic (Arousable to voice and tactile stimulation; noncommunicative)
Skin: Warm, Dry, Cyanosis (negative) and Jaundice (negative)
Labs/Micro/Reports
Lab Data
05/22/24 04:05
Microbiology
05/21/24 09:34 Abdomen Wound Culture - Preliminary
Gram negative bacilli
05/21/24 09:34 Abdomen Gram Stain - Preliminary
05/20/24 23:54 Nose MRSA Screen - Final
No Methicillin Resistant Staphylococcus aureus isolated.
05/21/24 16:55 Fluid Gram Stain - Preliminary
05/20/24 16:18 Blood/Venous Blood Culture - Preliminary
No Growth in 24 hours- Final report to follow
05/20/24 16:18 Blood/Venous Blood Culture - Preliminary
No Growth in 24 hours- Final report to follow
[2024-05-22] MEDS: TYLENOL PO (09:32)
--- NOTE | 2024-05-22 09:37 | PTCARENOTE ---
Temp noted, confirmed transfusion still to proceed, attempted to medicate with tylenol crushed in jello, pt very clearly and adamantly refusing to take. eyes closed. blood infusing, blankets removed, otherwise no change, tolerating transfusion
well.
[2024-05-22] MEDS: TYLENOL 650 MG PO (09:41)
[2024-05-22] MEDS: MERREM 500 MG IV ×3 (09:55→21:14)
[2024-05-22] MEDS: STERILE WATER FOR INJECTION 10 ML IV ×3 (09:55→21:14)
--- NOTE | 2024-05-22 10:14 | W.PN.HOSP.TC ---
Addendum entered and electronically signed by Landon Christine MD 05/22/24 13:24:
Suppressed TSH - decrease SYnthroid
Original Note:
Today's Communication/Plan
-
Transfuse PRBC 1 unit
follow H&H q8h
Switch to merrem
GenSx will consult ID
Assessment / Plan
Assessment / Plan
73yo F with PMHx of dementia, HFpEF, HTN, hyporthyroidism, R temporal glioma s/p resection x2, volvulus s/p hemicolectomy and colostomy reversal, anemia, CAD, CVA, overactive bladder, Hx of Afib developed discharge from paraumbilical area with
wound, CT scan done as outpatient showing possible bowel perf, so patient sent to ER. Managed for abdominal cellulitis with abscess, possible enterocutaneous fistula and mesh infection
A/P
#Septic shock 2/2 Abdominal wall abscess with abdominal wall cellulitis with mesh infection
remote history of abdominal hernia repair with mesh
Possible fistulous communication to bowel
VAnco/Merrem
Drain placed to abscess on 05/21/24
Wound and drain Cx pending
Bcx
GenSx consult: as per agreement with family - conservative mgmt
ID consult
Wean off pressors as per financial accounting manager
Wound Cx
#Anemia of chronic disease
worsening Hgb - can be also due to significant hydration with shock
check FOBT
Transfuse to keep Hgb >7 - concent signed
Avoid antiplatelets/anticoagulation
#Cholelithiasis with gall bladder sludge
outpatient monitoring
#Constipation
laxatives
#dementia, advanced
as per family - patient with progressive decline, needed assistance for feeding for the past couple of months
#HFpEF, chronic
concern for developing volume overload 2/2 IVF given for shock
Monitor for now, lasix if respiratory function deteriorates
decrease hydration
stop Lasix 22/2 hypotension
##Hypokalemia
follow and replete electrolytes
#Hypothyroidism
#essential HTN
check TSH
hold antihypertensives until BP improves
#Anemia chronic
follow CBC
Anemia w/u
DVT ppx SCDs (2/2 anemia)
GI ppx PPI
DNR/DNI
I have spent at least 56min reviewing chart, test results, communication with consultants and direct patient care
Anticipated Discharge: > 48 hours
Subjective/Interval History
-
Date of Service: May 22, 2024
Objective Data
-
Labs:
Laboratory Results
05/22/24 05/22/24 05/22/24
04:05 07:33 16:00
WBC 3.6 L
Hgb 6.7 L* 6.5 L* Pending
Hct 22.1 L 20.7 L* Pending
Plt Count 188 D
Sodium 133 L
Potassium 3.5
Chloride 103
Carbon Dioxide 26
BUN 10
Creatinine 0.5 L
Glucose 108 H
Calcium 8.6
Total Bilirubin 1.2
AST 9 L
ALT < 10
Alkaline Phosphatase 67
Vital Signs:
Vital Signs
Temp Pulse Resp BP Pulse Ox
101 F H 74 17 103/50 92
05/22/24 09:41 05/22/24 09:45 05/22/24 09:45 05/22/24 09:41 05/22/24 09:45
I&O
05/21/24 05/22/24 05/23/24
06:59 06:59 06:59
Intake Total 857.5 / 1039.5 3346.9 / 3444.4 247.6 / 247.6
Output Total 550 / 550 2230 / 2230
Balance 307.5 / 489.5 1116.9 / 1214.4 247.6 / 247.6
Review of Systems
-
Unable to obtain full review of systems at this time due to: Dementia
History Source: Patient
All other systems: Reviewed and negative
--- NOTE | 2024-05-22 10:33 | W.PN.GS2 ---
Addendum entered and electronically signed by Renato Colon MD 05/22/24 11:13:
Patient seen and examined. Agree with assessment plan as documented below.
Minimally aroused. No meaningful encounter conversation.
Gen: NAD
Abd: soft, NT, ND, no diffuse peritonitis, IR drain with feculent output
Patient is a 73 yo F p/w abdominal wall abscess and mesh infection with ECF. All surgical procedures performed at OSH.
CT imaging confirms sizable deep subcutaneous air fluid collection around the fascial layer immediately adjacent to previously placed mesh.
PPD #1 IR drainage with enteric contents in drain indicating presence of fistulous tract
Given patient's dementia, DNR and stable abdominal examination without generalized peritonitis or even localized peritonitis there are no indications for urgent operative intervention which was discussed with her [id number] who is her POA
Plan:
-- Continue ABX, broad-spectrum antibiotics pending subsequent culture results
-- Consult placed to ID to follow as she will likely require prolonged ABX for infection of prior mesh
-- GI ppx with PPI
-- Medical management as per primary team
Original Note:
Today's Communication / Plan
-
Continue drain
ID consult
Assessment / Plan
-
73-year-old female presenting with abdominal wall infection/abscess and draining purulent sinus tract.
CT imaging confirms sizable deep subcutaneous air fluid collection around the fascial layer immediately adjacent to previously placed mesh.
PPD #1 IR drainage with enteric contents in drain indicating presence of fistulous tract
Given patient's dementia, DNR and stable abdominal examination without generalized peritonitis or even localized peritonitis there are no indications for urgent operative intervention which was discussed with her [id number] who is her POA
Plan:
Continue ABX
Consult placed to ID to follow as she will likely require prolonged ABX for infection of prior mesh
Broad-spectrum antibiotics pending subsequent culture results
GI ppx with PPI
Medical management as per primary team
Subjective Data
-
Date of Service: May 22, 2024
Patient seen and examined at bedside with Dr. Colon. Lethargic, awakens to light stimulation. Offers no complaints.
Objective Data
-
Intake and Output
05/21/24 05/22/24 05/23/24
06:59 06:59 06:59
Intake Total 857.5 / 1039.5 3346.9 / 3444.4 247.6 / 247.6
Output Total 550 / 550 2230 / 2230
Balance 307.5 / 489.5 1116.9 / 1214.4 247.6 / 247.6
Intake:
Oral fluids 0 / 0
IV fluids (Total) 857.5 / 972.5 2310.9 / 2358.4 197.6 / 197.6
LEVO 157.5 / 172.5 350.9 / 358.4 37.6 / 37.6
Nss 1,000 ml @ 80 mls/hr IV . 700 / 800 1959 / 1999 160 / 160
[id number] Rx#:[id number]
IV piggybacks 1036.0 / 1086.0 50 / 50
Blood Product Amount Infused ( 0 / 0
mL)
Packed Rbc Leukoreduced Unit 0 / 0
[id number]
Output:
Drain Output (Total) 180 / 180
Abdomen Placed in IR 180 / 180
Urine, Voided 550 / 550 2049
Other:
Number of approximated MODERATE 1
amounts of urine
How many times incontinent 1
SATURATED amount urine
Vital Signs
Temp Pulse Resp BP Pulse Ox
101 F H 74 17 103/50 92
05/22/24 09:41 05/22/24 09:45 05/22/24 09:45 05/22/24 09:41 05/22/24 09:45
Lab Results
05/22/24 04:05
Calcium 8.6 mg/dl (8.4-10.2) 05/22/24 04:05
Phosphorus 3.1 mg/dl (2.5-4.5) 05/21/24 03:28
Magnesium 2.4 mg/dl (1.6-2.3) H 05/22/24 04:05
Total Bilirubin 1.2 mg/dl (0.2-1.3) 05/22/24 04:05
AST 9 U/L (14-36) L 05/22/24 04:05
ALT < 10 U/L (0-35) 05/22/24 04:05
Alkaline Phosphatase 67 U/L (38-126) 05/22/24 04:05
Total Protein 5.1 g/dl (6.3-8.2) L 05/22/24 04:05
Albumin 2.7 g/dl (3.5-5.0) L 05/22/24 04:05
Physical Exam
-
Lethargic, NAD
ABD soft, NT, IR drain with enteric contents
[2024-05-22] MEDS: LEVOPHED 250 IV (11:16)
[2024-05-22] MEDS: KCL 100 IV (11:16)
[2024-05-22 12:17] LABS: Free T4 1.44 ng/dl (0.78-2.19)
--- NOTE | 2024-05-22 12:50 | PTCARENOTE ---
blood completed, see TAR, repeat CBC pending. unless disturbed, eyes closed, sleeping or resting quietly. purewick draining clear yellow. temp improved after tylenol dose earlier.
--- NOTE | 2024-05-22 13:30 | PHA.VAN.FU ---
Vancomycin Assessment / Plan
- Assessment
Renal Function: Stable
Concomitant Antimicrobials: meropenem
- Dosing Plan
Continue: Vanc 1000mg Q12H
- Monitoring Plan
No level(s) ordered at this time: consider levels in next few days
- Follow Up
Pharmacy will continue to follow.
Vancomycin Follow UP
- -
Patient Age: 73
Patient Sex: Female
Vancomycin Day #: 3
Indication: Gi / Intra-Abdominal
Requesting Provider: Suzanne
Pertinent Antimicrobial Allergies:
NKDA
Height / Weight:
Height 5 ft 6 in
Actual Weight 80.3 kg
- Vital Signs / Lab Results
Temp Pulse Resp BP Pulse Ox
98.1 F 56 18 116/59 94
05/22/24 12:07 05/22/24 12:45 05/22/24 12:45 05/22/24 12:30 05/22/24 12:15
Lab Results - Hematology
05/20/24 05/21/24 05/22/24
16:18 03:28 04:05
WBC 4.8 6.0 3.6 L
Band Neutrophils 1 5 H 1
Lab Results - Chemistry
05/20/24 05/21/24 05/21/24
16:18 03:28 12:09
BUN 29 H 20 H 15
Creatinine 0.6 0.5 L 0.5 L
Estimated Creat Clear 88 85
Albumin 2.7 L 2.4 L
05/22/24
04:05
BUN 10
Creatinine 0.5 L
Estimated Creat Clear 85
Albumin 2.7 L
05/20/24 05/20/24 05/20/24
16:15 16:18 16:18
Lactic Acid Cancelled Cancelled 1.8
Microbiology Results
05/21/24 16:55 Body Fluid Culture - Preliminary
Fluid Escherichia coli
Gram Stain - Preliminary
05/21/24 09:34 Wound Culture - Preliminary
Abdomen Gram negative bacilli
Gram Stain - Preliminary
05/20/24 23:54 MRSA Screen - Final
Nose No Methicillin Resistant Staphylococcus aureus isolated.
05/20/24 16:18 Blood Culture - Preliminary
Blood/Venous No Growth in 24 hours- Final report to follow
05/20/24 16:18 Blood Culture - Preliminary
Blood/Venous No Growth in 24 hours- Final report to follow
[2024-05-22 13:48] LABS: Hematocrit 25.5 % (37.0-47.0); Mean Corp Hgb Conc. 31.4 g/dL (33.0-37.0); Mean Corpuscular Hgb 28.4 pg (27.0-31.0); Mean Corpuscular Volume 90.4 fL (81.0-99.0); Mean Platelet Volume 9.8 fL (7.4-10.4); Platelet Count 211 10^3/uL (130-400); Red Blood Cell Count 2.82 10^6/uL (4.20-5.40); Red Cell Dist. Width 17.6 % (11.5-14.5); White Blood Cell Count 4.5 10^3/uL (4.8-10.8)
--- NOTE | 2024-05-22 14:08 | CM ---
CM following re: discharge planning.
Reviewed pt's chart, met with pt.
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 Pt recently lost her son. Sister in law POA and cousin heavily involved. Pt is on 15 day Medicaid bed hold.
Pt's clinical faxed to [facility] for a review.
D/C plan: return back to [facility] for a LTC when medically stable.
CM will follow with discharge plan updates as hospitalization progresses
--- NOTE | 2024-05-22 14:24 | CON.ID ---
Consultation
-
Date/Time Consultation Requested: 05/22/2024 1016
Date/Time Consultation Performed: 05/22/2024 1424
Requesting Provider: Ilan Moctezuma
Performing Provider: Dr. Higuera
Reason for Consultation: Abdominal mesh infection
Chief Complaint / Past History
History of Present Illness
Smiley Wagoner is a 73-year-old female being evaluated in regards to an abdominal mesh infection. History is obtained from chart review, along with patient interview.
The patient presented to [facility] on 05/20/2024 over concern for a possible perforated viscus. She arrived from the nursing facility where she had had a abdominal CT performed on 05/10 which was resulted on the day which revealed concerns
for bowel perforation. 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 She also has had anterior abdominal wall hernia surgery several years ago at
an outside hospital. Over the prior 2 weeks she has developed drainage from the anterior portion of her abdomen. She was evidently started on antibiotics and a CTA was ordered. When resulted, there was concern for bowel perforation and she was
sent to the emergency room.
Since admission, she has been evaluated by General Surgery. Additionally, repeat CT imaging revealed a deep subcutaneous air fluid collection. IR has performed a drainage of the area. Cultures reveal E. coli. Infectious Diseases is asked to
comment on further antimicrobial therapy.
Past History
Additional Past Medical History:
CKD
Hx CVA
HTN
Hypothyroidism
Right temporal glioma
CAD
Overactive bladder
Additional Past Surgical History:
Right temporal glioma resection
Hemicolectomy with ostomy and subsequent reversal
Appendectomy
Incisional hernia repair
x 2
Allergy History:
No Known Allergies Allergy (Unverified 05/20/18 21:12)
Medications Reviewed: Yes
Current Antibiotics:
Vancomycin
Meropenem 500 mg IV every 6 hours
Social History
Tobacco: Non-Smoker
Alcohol: None
Drug: None
Living: [facility]
Employment: Retired
Family History
Family History: Not Pertinent
Review of Systems
Vital Signs
Temp Pulse Resp BP Pulse Ox
98.1 F 56 18 116/59 94
05/22/24 12:07 05/22/24 12:45 05/22/24 12:45 05/22/24 12:30 05/22/24 12:15
Physical Exam
Physical Exam
Constitutional: Comfortable, Chronically Ill and Non-toxic
Head: Normocephalic
Eyes: Pupils Equal, Pupils Round, No Conjunctival Hemorrhage and Sclera Anicteric
Oral: No Thrush and No Ulcers
Cardiovascular: Regular Rate and S1/S2; Negative S3/S4
Pulmonary: Clear; Negative Wheezes or Rales
Gastrointestinal: Soft, Non Distended, Normal Bowel Sounds and Other (Left to midline ANTONIO drain in place with dark drainage.)
Extremities: Edema (Trace); Negative Cyanosis or Erythema
Skin: Warm and Dry; Negative Rash or Jaundice
Neurological: Other (Arousable and responsive to voice and touch.)
Psychological: Calm
.
Lab / Diagnostic Study Results
05/22/24 16:00
05/22/24 04:05
Total Counted 100 05/22/24 04:05
Abs Neuts (Manual) 2.3 10^3/uL (1.4-6.5) 05/22/24 04:05
Segmented Neutrophils 65 % (42-75) 05/22/24 04:05
Band Neutrophils 1 % (0-3) 05/22/24 04:05
Lymphocytes (Manual) 14 % (20-51) L 05/22/24 04:05
Eosinophils (Manual) 2 % (0-6) 05/22/24 04:05
Basophils (Manual) 2 % 05/22/24 04:05
PT 14.7 Sec (11.4-14.6) H 05/20/24 16:18
INR 1.09 05/20/24 16:18
Lactic Acid 1.8 mmol/L (0.7-2.0) 05/20/24 16:18
Lactic Acid Cancelled 05/20/24 16:18
Microbiology Results
Micro:
05/21/24 16:55 Body Fluid Culture - Preliminary
Fluid Escherichia coli
Gram Stain - Preliminary
05/21/24 09:34 Wound Culture - Preliminary
Abdomen Gram negative bacilli
Gram Stain - Preliminary
05/20/24 23:54 MRSA Screen - Final
Nose No Methicillin Resistant Staphylococcus aureus isolated.
05/20/24 16:18 Blood Culture - Preliminary
Blood/Venous No Growth in 24 hours- Final report to follow
05/20/24 16:18 Blood Culture - Preliminary
Blood/Venous No Growth in 24 hours- Final report to follow
Imaging:
05/20/2024 CT abdomen/pelvis with IV contrast: Previous anterior abdominal wall hernia repair noted. Currently a complex collection consistent with abscess at the repair site is noted. Within the peritoneum and adjacent to the posterior margin of
the abscess there are multiple loops of bowel which appeared to be adherent to the adjacent peritoneal margin. No evidence of bowel obstruction.
Assessment / Plan
Abdominal wall infection
Suspected infected mesh
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
Anemia
Hyponatremia
Hx CVA
HTN
Hypothyroidism
Right temporal glioma
CAD
Overactive bladder
Recommendations:
Current collection cultures reveal presence of E. coli, with susceptibilities pending.
Continue with empiric meropenem for the present.
Doubt MRSA; discontinue further vancomycin for now. Will re-add if MRSA recovered.
Await further culture data to guide further antimicrobial selection and potential de-escalation.
If the mesh ultimately deemed infected, cure is not likely possible without mesh removal, but patient may be able to be maintained on chronic suppressive antibiotics.
[2024-05-22] MEDS: CELEXA 20 MG PO (14:46)
--- NOTE | 2024-05-22 15:16 | VATNOTE ---
Picc order in place. Patient currently on 2 mcg of levophed. Primary RN weaning the levophed off . No need for picc line placement at this time. Will reevaluate in am for the needs.
--- NOTE | 2024-05-22 15:30 | PTOTSP ---
SPEECH THERAPY SWALLOW EVALUATION:
Patient exhibits clinical signs of oropharyngeal dysphagia, likely chronic related to history of dementia/CVA and acutely exacerbated by critical illness/deconditioning secondary to septic shock/abscess. Patient remains at HIGH RISK for aspiration
and related complications given confusion and weakness/deconditioning. Recommend cautious oral diet of IDDSI Level 4 Puree diet, Mildly-thick liquids via cup only. Medications crushed in puree. Strict aspiration precautions includin:1
assistance/100% supervision with meals; Upright positioning; NO STRAW; Only feeding when awake/alert; Only feed when SpO2>90% and RR<30; Check for pocketing; Alternate textures; Small bites/sips; Slow rate of intake; Monitor for signs of aspiration;
D/c oral diet if any decline in mental/respiratory status. Consider instrumental assessment of swallowing. ST to follow, determine indication for VSE if warranted, assess diet tolerance and modify as appropriate, and provide family education
regarding aspiration risks/precautions.
RECOMMEND:
1) IDDSI Level 4 Puree diet, Mildly-thick liquids via cup only
2) Medications crushed in puree
3) Strict aspiration precautions includin:1 assistance/100% supervision with meals; Upright positioning; NO STRAW; Only feeding when awake/alert; Only feed when SpO2>90% and RR<30; Check for pocketing; Alternate textures; Small bites/sips; Slow
rate of intake; Monitor for signs of aspiration; D/c oral diet if any decline in mental/respiratory status
4) Consider instrumental assessment of swallowing
5) ST to follow
--- NOTE | 2024-05-22 17:35 | PTCARENOTE ---
unable to continue weaning levophed, titrating back up. VAT here earlier, pt was very resistant and uncooperative, discussed with IV team situation and they will return tomorrow. Femoral line remains in place at this time, dressing occlusive.
--- NOTE | 2024-05-22 18:23 | PTCARENOTE ---
dinner: flatly refused, 'don't you take no?' agreed to 1 bite flounder pureed then refused everything beyond that. Multiple gentle attempts, unsuccessful. I/O collected, IMU orders obtained, back up on levophed, see titrations.
[2024-05-22] MEDS: SENOKOT-S PO (21:03)
[2024-05-22] MEDS: LIPITOR PO (21:04)
--- NOTE | 2024-05-22 21:58 | PTCARENOTE ---
Assumed care of pt at 1900. Received pt on Levophed at 3mcg/min, goal to keep MAP >65. Pt drowsy, arouses to voice, able to follow simple commands and shake head/nod head appropriately to questions but would not answer orientation questions. Keeps
eyes closed. Reluctantly allowed me to do oral care. Denies pain. SR 60s-70s on monitor, SpO2 90-95% on RA. See nursing shift assessment flowsheet for full physical assessment details. Pt is IMU level of care.
[2024-05-23] VITALS (39 sets, daily range): BP systolic 74–127; BP diastolic 36–71; BMI 28.7
[2024-05-23] MEDS: STERILE WATER FOR INJECTION 10 ML IV ×4 (04:17→21:31)
[2024-05-23] MEDS: MERREM 500 MG IV ×4 (04:17→21:31)
[2024-05-23 04:24] LABS: Hematocrit 24.3 % (37.0-47.0); Hemoglobin 7.9 g/dL (12.0-16.0); Mean Corp Hgb Conc. 32.5 g/dL (33.0-37.0); Mean Corpuscular Hgb 28.3 pg (27.0-31.0); Mean Corpuscular Volume 87.1 fL (81.0-99.0); Mean Platelet Volume 9.3 fL (7.4-10.4); Platelet Count 204 10^3/uL (130-400); Red Blood Cell Count 2.79 10^6/uL (4.20-5.40); White Blood Cell Count 4.3 10^3/uL (4.8-10.8)
[2024-05-23 04:59] LABS: ALT (SGPT) 10 U/L (0-35); AST (SGOT) 11 U/L (14-36); Albumin 2.4 g/dl (3.5-5.0); Alkaline Phosphatase 63 U/L (38-126); Blood Urea Nitrogen 11 mg/dl (7-17); Calcium 8.8 mg/dl (8.4-10.2); Carbon Dioxide 24 mmol/L (22-30); Chloride 104 mmol/L (98-107); Estimated Creatinine Clearance 87 ml/min; Glucose 91 mg/dl (70-99); Magnesium 2.2 mg/dl (1.6-2.3); Phosphorus 2.6 mg/dl (2.5-4.5); Potassium 3.3 mmol/L (3.5-5.1); Sodium 133 mmol/L (135-145); Total Bilirubin 1.2 mg/dl (0.2-1.3); Total Protein 4.9 g/dl (6.3-8.2); eGFR > 60.00
[2024-05-23 05:51] LABS: Band Neutrophils 2 % (0-3); Eosinophils 2 % (0-6); Lymphocytes 15 % (20-51); Metamyelocytes 2 % (-); Monocytes 8 % (2-9); Myelocytes 1 % (-); Segmented Neutrophils 70 % (42-75)
[2024-05-23 05:52] LABS: Anisocytosis 1+; Hypochromasia 1+; Normal RBC Morphology No; Ovalocytes Slight; Platelets Checked Yes; Total Cells Counted 100
--- NOTE | 2024-05-23 06:30 | PTCARENOTE ---
Addendum entered by Ingrid Doyle RN 05/23/24 07:08:
K+ rider ordered, administered at this time.
Original Note:
Pt down to 2mcg/min of Levophed. Attempted to wean pt off Levophed completely but this only lasted about an hour before it had to be turned back on. Pt's K+ 3.3 this AM. House Provider Kali FINCH notified via [employer] [employer], explained that patient
does not always cooperate with taking po meds but she does have central line access for a K+ rider. No new orders at this time.
[2024-05-23] MEDS: SYNTHROID 137 MCG PO (06:36)
[2024-05-23] MEDS: KCL 100 IV (07:06)
[2024-05-23] MEDS: NSS 1000 IV ×2 (08:00→21:50)
[2024-05-23] MEDS: PROTONIX IV 40 MG IV ×2 (08:01→19:43)
[2024-05-23] MEDS: CELEXA PO ×2 (08:01→08:38)
[2024-05-23] MEDS: CLARITIN PO ×2 (08:01→08:38)
[2024-05-23] MEDS: NSS (PRESERVATIVE FREE) 10 ML IV ×2 (08:01→19:43)
[2024-05-23] MEDS: ZINC OXIDE OINTMENT 1 APPLIC TOPICAL ×2 (08:01→19:42)
[2024-05-23] MEDS: SENOKOT-S PO ×2 (08:01→08:39)
[2024-05-23] MEDS: LAC HYDRIN, AM LACTIN LOTION 1 APPLIC TOPICAL ×2 (08:02→19:42)
--- NOTE | 2024-05-23 08:31 | W.PN.PUL3 ---
Today's Communication / Plan
-
Wean off vasopressors while maintaining MAP >65
Can consider starting midodrine if needed
Continue with antibiotics as per ID
Follow-up sensitivities of body fluid culture
Continue with percutaneous drain placed by IR on 05/21/2024
Seems like patient wants to be left alone and is interested in going home despite her medical issues; I will consult hospice to speak to the patient and her family
DNR/DNI
She is currently in the IMU and I suspect that she can be downgraded to telemetry today if blood pressure remains stable off vasopressors for >6 hours. No additional recommendations at this time. Web Application Dev Specialist/Pulmonary service will now sign off.
Please reconsult if there are any additional questions/concerns, or if patient's respiratory status deteriorates.
Assessment
-
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
bronchitis, hypertension and chronic HFpEF who presents from [facility] due to abnormal CT scan on 05/10/2024 which showed concerns for bowel perforation. CT scan result is not available. HPI performed from review of medical records
as the patient is generally noncommunicative and just wants to be left alone. Per the patient's [id number], the patient has had an anterior abdominal wall hernia several years ago. Over the past 2 weeks the patient has had discharge from her
superficial wound on her abdomen. She was previously started on oral antibiotics and her physician at [facility] ordered a CT abdomen/pelvis which showed concern for bowel perforation and that is what brought her here to the hospital.
Apparently the patient was living independently until December of this year and then has had worsening cognitive decline and she cannot ambulate or live independently, or take care of herself. Initially in the ER the patient was febrile to 100.4 �F,
pulse rate 90, respiratory rate 18, blood pressure 74/45 and saturating 97% on room air. Labs showed normal WBC at 4.8, Hb 8.5, 8% eosinophils, serum sodium 130, serum albumin level 2.7, urinalysis negative for signs of UTI and TSH was low at 0.27.
Blood cultures were collected. CT abdomen/pelvis with IV contrast performed showing a complex collection consistent with an abscess at a previous anterior abdominal wall hernia repair site. Also cholelithiasis without CT evidence of
cholecystitis, and constipation with moderate to large fecal burden throughout the colon most pronounced in the rectosigmoid area. She was given 2 L IVF with NS 0.9% in the ER, as well as IV vancomycin/Zosyn. Unfortunately her blood pressure
remained low with SBP in the 70s and Levophed was started. She was admitted to the ICU for further care and pier runner services consulted for additional management/recommendations.
Chronic conditions MEDICAL OFFICE WORKER: Right temporal glioma, mitral valve prolapse, severe mitral regurgitation, hypothyroidism, CAD, glioblastoma, depression, chronic bronchitis, sigmoid volvulus, chronic HFpEF, hypertension
Impression:
#Septic shock in the setting of abdominal wall abscess - shock state improving
#Abdominal wall abscess at the site of prior abdominal wall hernia repair s/p IR percutaneous drain placed 05/21/2024
#Sepsis with bandemia (5% bands seen on CBC from 05/21/2024)
#Chronic anemia (last Hb on file from 2018 was 8.8)
#Constipation with moderate�large fecal burden seen on CT abdomen/pelvis from 05/20/2024
#Hyponatremia likely due to reduced PO intake with hyperaldosteronism
#Hypoalbuminemia
#Subclinical hypothyroidism (TSH low at 0.27 with normal fT4 at 1.44 --> likely due to central hypothyroidism in setting of critical illness)
#Nonobstructive CAD
#History of depression
#Chronic HFpEF
#History of mitral valve prolapse with severe mitral regurgitation s/p urgent mitral valve repair in the setting of refractory pulmonary edema (May 2018) c/b postoperative A-fib
#History of glioma x 2 s/p resection
Plan:
- Patient has an abscess at the site of prior abdominal wall hernia repair seen on imaging from CT abdomen/pelvis from 05/20/2024
- General Surgery consulted and discussion held with what is the best intervention to do, and we have agreed to have IR insert a percutaneous drain as opposed to going to the OR
- IR placed a percutaneous drain on 05/21/2024 with drainage of 30 cc of malodorous fluid most consistent with liquid stool --> fluid Cx growing E. coli + Staph spp (follow-up sensitivities)
- Continue with broad-spectrum antibiotics, currently on meropenem + micafungin s/p IV vanco (05/20 - 05/22) + s/p Zosyn (05/20-05/22) --> suspect she will need at least 14 days of Abx; ID consulted - recs appreciated
- Wound care consult
- Follow-up blood cultures (collected 05/20/2024 � NGTD); abdominal wound culture growing pansensitive E. coli (suspect this will be same organism as the body fluid culture)
- Pain control
- Continue with vasopressors and titrate to maintain MAP>65
- If Levophed requirements increase >10 then start vasopressin
- s/p 2 doses of albumin 25g 25% on 05/21 given her serum albumin level was 2.4 --> this should help her oncotic pressure and help get her off the pressors
- IVF DC'd given she had mild pulmonary vascular congestion seen on CXR from 05/21/2024, as well as tiny bilateral pleural effusions seen on CT abdomen/pelvis from 05/20/2024
- Diet as per AGRICULTURAL RESEARCH TECHNICIAN
- She was acutely anemic yesterday morning on a.m. labs with Hb 6.7 and was 6.5 on repeat --> was transfused 1 unit PRBC with subsequent CBC showing Hb of 8; keep Hb >7g/dL; keep plt>50k
- She is not clinically bleeding
- Patient shows moderate�large fecal burden and she is at risk of stercoral colitis --> continue bowel regimen with Senokot; she has been intermittently refusing PO meds
- If she continues to refuse treatment then perhaps discussing goals of care would be the next best option
- Maintain SpO2 >90-94%
- Aspiration precautions
- There appears to be pulmonary vascular congestion on CXR --> echo done yesterday shows normal biventricular size and systolic function with trace MR and mild TR with moderately elevated PASP at 45 mmHg
- Replete electrolytes with K>4, Mg>2
- Maintain euglycemia with goal BG 140-180
- prn nebulized bronchodilators - not currently bronchospastic
- Incentive spirometer encouraged 10x per hour for at least 4 hrs a day
- PT/OT
- DVT ppx: SCDs given acute anemia on AM labs yesterday; If Hb remains stable by tomorrow then would resume HSQ at that time
Code status: DNR/DNI --> she would like to speak to hospice as I mentioned this to her today and she just 'wants to go home.' I will consult hospice today so that she can speak to the patient and her family.
Vasopressors are being weaned and she is much more stable today. She is currently in the IMU and I suspect that she can be downgraded to telemetry today if blood pressure remains stable off vasopressors for >6 hours. No additional recommendations
at this time. Web Application Dev Specialist/Pulmonary service will now sign off. Thank you for allowing us to be involved in the care of this patient. Please reconsult if there are any additional questions/concerns, or if patient's respiratory status deteriorates.
Data:
CT abdomen/pelvis with IV contrast 05/20/2024:
Previous anterior abdominal wall hernia repair. Currently, complex collection, consistent with abscess at the repair site, as described. Within the peritoneum adjacent to the posterior margin of the abscess, there are multiple loops of bowel which
appeared adherent to the adjacent peritoneal margin. No proximal obstruction.
Cholelithiasis without CT evidence of acute cholecystitis.
Constipation. Moderate to large fecal burden throughout the colon, most pronounced in the rectosigmoid colon.
Age indeterminate mild compression deformity of L5. Superior mild endplate compression deformity of L2, with increased sclerosis, suggesting possible acute or subacute component. Mild superior plate compression deformities of T12 and L1, age
indeterminate, though likely chronic.
CXR 05/21/2024:
1. Mild pulmonary vascular congestion. No large pleural effusion on either side
2. Mild cardiac enlargement.
Total time spent today was 56 minutes for this encounter. Time includes reviewing laboratory test/imaging results, reviewing pertinent medical records, obtaining and reviewing medical history, performing an appropriate exam, ordering medications,
tests and procedures. Time also includes documentation of this encounter, coordinating patient care and communicating with other healthcare professionals. Total time does not include separately billed tests performed on this date of service.
Subjective Data
-
Date of Service:
Date of Service: May 23, 2024
Chief Complaint: Pulmonary Follow Up
Subjective:
Patient seen and evaluated today at bedside. She is much more awake and alert today and is answering my questions. She is currently on Levophed at 1mcg/min. BP 123/69, heart rate 69 and saturating 94% on room air. ANTONIO drain in place draining
brown, 'oil appearing' fluid in the bulb. She denies abdominal pain, ANDERSON, SOB, chest pain, fevers chills.
Review of Systems
General: Other (Negative unless mentioned above)
Objective Data
Data Reviewed
Vital Signs / I&O / Oxygen:
Vital Signs
Temp Pulse Resp BP Pulse Ox
98.7 F 65 17 118/64 91
05/23/24 07:45 05/23/24 08:30 05/23/24 08:30 05/23/24 08:30 05/23/24 06:30
Intake and Output
05/22/24 05/23/24 05/24/24
06:59 06:59 06:59
Intake Total 3346.9 / 3444.4 2577.7 / 2577.7
Output Total 2230 / 2230 2004
Balance 1116.9 / 1214.4 572.7 / 572.7
SaO2 91
Nasal Cannula flow liters per 2
minute
Physical Exam
General: Respiratory Distress (negative), Comfortable, Chills (negative) and Sweats (negative)
HEENT: Normocephalic and Anicteric
Cardiovascular: S1-S2 and Peripheral Edema (negative)
Respiratory: Clear, Wheeze (negative), Crackles (negative), Rhonchi (negative) and Non-Labored Respirations
GI: Other (Left lower quadrant percutaneous drain in place with dark brown, foul-smelling gelatinous fluid seen in bulb)
Neurology: Awake, Alert and Tremors (negative)
Skin: Warm and Dry
Labs/Micro/Reports
Lab Data
05/23/24 04:14
05/23/24 04:14
Microbiology
05/21/24 16:55 Fluid Body Fluid Culture - Preliminary
Escherichia coli
Staphylococcus species
05/21/24 16:55 Fluid Gram Stain - Preliminary
05/21/24 09:34 Abdomen Wound Culture - Preliminary
Gram negative bacilli
05/21/24 09:34 Abdomen Gram Stain - Preliminary
05/20/24 16:18 Blood/Venous Blood Culture - Preliminary
No Growth in 48 hours- Final report to follow
05/20/24 16:18 Blood/Venous Blood Culture - Preliminary
No Growth in 48 hours- Final report to follow
05/20/24 23:54 Nose MRSA Screen - Final
No Methicillin Resistant Staphylococcus aureus isolated.
--- NOTE | 2024-05-23 09:18 | W.PN.ID1 ---
Addendum entered and electronically signed by Laura Eldridge MD 05/23/24 14:42:
Spoke with Ms Arielle Wagoner earlier today. Explained that in my opinion Ms Wagoner meets criteria for hospice (likely demise within 6 months); she tells me she has heard Smiley say in the past that she wants hospice care. She feels torn at the moment
and would like to discuss it with Smiley directly tonight or tomorrow AM. I am available to continue to conversation tomorrow.
Original Note:
Date of Service
Date of Service: May 23, 2024
Today's Communication
Patient insists to me, without prompting, that she wants to transition to hospice care. I see that she has been intermittently refusing medications and meals. Mesh infections are challenging to manage, there is also suggestion of fistula.
Clarifying whether one exists could impact prognosis from the infection standpoint. I also note that she is functionally nonambulatory, requires assistance for her meals and ADLs. In my opinion she understands the consequences of her choice and
given documentation from other providers it seems that her choice is consistent through time. I discussed with the primary team, Dr Lopez, and left a message for first listed contact Arielle Wagoner asking her to give me a call back via my answering
service.
awaiting sensitivities
continue meropenem
yeast seen on gram stain - added micafungin
Assessment / Plan
Abdominal wall infection
Suspected infected mesh
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
Anemia
Hyponatremia
Hx CVA
HTN
Hypothyroidism
Right temporal glioma
CAD
Overactive bladder
Recommendations:
Current collection cultures reveal presence of E. coli, with susceptibilities pending
gram stain with yeast
QTc acceptable
added micafungin
Continue with empiric meropenem for the present- deescalate PRN
Doubt MRSA; discontinue further vancomycin for now. Will re-add if MRSA recovered.
Await further culture data to guide further antimicrobial selection and potential de-escalation.
Patient insists to me, without prompting, that she wants to transition to hospice care. I see that she has been intermittently refusing medications and meals. Mesh infections are challenging to manage, there is also suggestion of fistula.
Clarifying whether one exists could impact prognosis from the infection standpoint. I also note that she is functionally nonambulatory, requires assistance for her meals and ADLs. In my opinion she understands the consequences of her choice and
given documentation from other providers it seems that her choice is consistent through time. I discussed with the primary team, Dr Lopez, and left a message for first listed contact Arielle Wagoner asking her to give me a call back via my answering
service.
Chief Complaint
-: Bacteremia
Subjective / Review of Systems
fevers yesterday am noted
continues with a pressor requirement
refusing meals intermittently
'I want to , this is a game, I want to stop playing.'
drain with 70 ccs output yesterday, 15 ccs thus far today - feculent
Vital Signs / Physical Exam
Vital Signs
Vital Signs
Temp Pulse Resp BP Pulse Ox
98.7 F 65 17 118/64 91
05/23/24 07:45 05/23/24 08:30 05/23/24 08:30 05/23/24 08:30 05/23/24 06:30
Physical Exam
Constitutional: No Acute Distress and Chronically Ill
Cardiovascular: Regular Rate and S1/S2; Negative Murmur or Rub
Pulmonary: Clear and Symmetric; Negative Wheezes or Rales
Gastrointestinal: Soft, Non Tender, Non Distended and Normal Bowel Sounds
Skin: Warm and Dry; Negative Rash or Jaundice
Lines: Other (drain - some feculent appearing drainage around the drain)
Objective Data
Lab Data
Lab Results
05/23/24 04:14
05/23/24 04:14
PT 14.7 Sec (11.4-14.6) H 05/20/24 16:18
INR 1.09 05/20/24 16:18
APTT 30.4 Sec (23.4-35.0) 05/20/24 16:18
Estimated Creat Clear 87 ml/min 05/23/24 04:14
Lactic Acid 1.8 mmol/L (0.7-2.0) 05/20/24 16:18
Lactic Acid Cancelled 05/20/24 16:18
Total Bilirubin 1.2 mg/dl (0.2-1.3) 05/23/24 04:14
AST 11 U/L (14-36) L 05/23/24 04:14
ALT 10 U/L (0-35) 05/23/24 04:14
Alkaline Phosphatase 63 U/L (38-126) 05/23/24 04:14
Most recent labs reviewed.
Micro Results:
05/21/24 09:34 Wound Culture - Preliminary
Abdomen Gram negative bacilli
Gram Stain - rare GNR
05/20/24 16:18 Blood Culture - Preliminary
Blood/Venous No Growth in 48 hours- Final report to follow
05/20/24 16:18 Blood Culture - Preliminary
Blood/Venous No Growth in 48 hours- Final report to follow
05/21/24 16:55 Body Fluid Culture - Preliminary
Fluid Escherichia coli
Gram Stain - many gpc, moderate gpr, few GNR, few yeast
05/20/24 23:54 MRSA Screen - Final
Nose No Methicillin Resistant Staphylococcus aureus isolated.
Imaging:
05/20/2024 CT abdomen/pelvis with IV contrast: Previous anterior abdominal wall hernia repair noted. Currently a complex collection consistent with abscess at the repair site is noted. Within the peritoneum and adjacent to the posterior margin of
the abscess there are multiple loops of bowel which appeared to be adherent to the adjacent peritoneal margin. No evidence of bowel obstruction.
Care Review
Plan reviewed with: Nurse (Jyothi - not eating, refusing meals, asking for hospice) and Physician (Dr Lopez - requesting hospice)
--- NOTE | 2024-05-23 09:25 | PTCARENOTE ---
Rec'd pt at 0700. Pt alert and awake, states that she's at [facility], reoriented to place, time and situation. Pt refused to take morning medications. Pt stated 'Stop what you're doing, I'm done with all of this'. Also refusing to eat breakfast.
Monitor SR. Levophed at 2mcg/min to keep MAP >65. Lungs dim. Abd dressing C/D/I, left ANTONIO drain with brown fluid to bulb. Purewick in place.
--- NOTE | 2024-05-23 10:26 | W.PN.HOSP.TC ---
Today's Communication/Plan
-
see bold
Assessment / Plan
Assessment / Plan
73yo F with PMHx of dementia, HFpEF, HTN, hyporthyroidism, R temporal glioma s/p resection x2, volvulus s/p hemicolectomy and colostomy reversal, anemia, CAD, CVA, overactive bladder, Hx of Afib developed discharge from paraumbilical area with
wound, CT scan done as outpatient showing possible bowel perf, so patient sent to ER. Managed for abdominal cellulitis with abscess, possible enterocutaneous fistula and mesh infection
Gen: NAD, Awake and alert
Eyes: EOMI, PERRLA, no scleral icterus.
Neck: supple.
CV: RRR, +S1/S2, no m/r/g.
Resp: CTAB, no rales, wheezes, or rhonchi.
Abd: +BS, soft, NT, ND
Skin: No rashes.
Neuro: CN 2-12 intact, non-focal.
Psych: Normal mood and affect.
05/21/24 16:55 Fluid Body Fluid Culture - Preliminary
Escherichia coli
Staphylococcus species
05/21/24 16:55 Fluid Gram Stain - Preliminary
05/21/24 09:34 Abdomen Wound Culture - Preliminary
Gram negative bacilli
05/21/24 09:34 Abdomen Gram Stain - Preliminary
05/20/24 16:18 Blood/Venous Blood Culture - Preliminary
No Growth in 48 hours- Final report to follow
05/20/24 16:18 Blood/Venous Blood Culture - Preliminary
No Growth in 48 hours- Final report to follow
05/20/24 23:54 Nose MRSA Screen - Final
No Methicillin Resistant Staphylococcus aureus isolated.
CT A/P: Previous anterior abdominal wall hernia repair. Currently, complex collection, consistent with abscess at the repair site, as described. Within the peritoneum adjacent to the posterior margin of the abscess, there are multiple loops of bowel
which appeared. To the region. No proximal obstruction. Cholelithiasis without CT evidence of acute cholecystitis. Constipation. Moderate to large fecal burden throughout the colon, most pronounced in the rectosigmoid colon. Age indeterminate mild
compression deformity of L5. Superior mild endplate compression deformity of L2, with increased sclerosis, suggesting possible acute or subacute component. Mild superior plate compression deformities of T12 and L1, age indeterminate, though likely
chronic.
Septic shock due to abdominal wall abscess with abdominal wall cellulitis with mesh infection:
-remote h/o abdominal hernia repair with mesh
-Possible fistulous communication to bowel
-Drain placed to abscess on 05/21/24, culture data above
-cont micafungin/meropenem as per ID
-wean levophed as tolerated
-surgery saw in c/s, conservative management as per agreement with family
Other problems:
Cholelithiasis with gall bladder sludge
Dementia, advanced as per family
Chronic HFpEF: daily wts, I/Os
Hypokalemia: IV K
Hypothyroidism
Essential HTN
Mild hyponatremia
Acute on chronic Anemia of chronic disease: s/p 1U pRBCs, trend Hb
SCDs (due to anemia)
DNR/DNI
Pt is requesting hospice (see ID note), will place c/s.
Total critical care time spent = 32 min
Anticipated Discharge: > 48 hours
Subjective/Interval History
-
Date of Service: May 23, 2024
Pt says 'joy.' Does not offer acute complaints.
Objective Data
-
Labs:
Laboratory Results
05/23/24
04:14
WBC 4.3 L
Hgb 7.9 L
Hct 24.3 L
Plt Count 204
Sodium 133 L
Potassium 3.3 L
Chloride 104
Carbon Dioxide 24
BUN 11
Creatinine 0.5 L
Glucose 91
Calcium 8.8
Total Bilirubin 1.2
AST 11 L
ALT 10
Alkaline Phosphatase 63
Vital Signs:
Vital Signs
Temp Pulse Resp BP Pulse Ox
98.7 F 65 17 118/64 91
05/23/24 07:45 05/23/24 08:30 05/23/24 08:30 05/23/24 08:30 05/23/24 06:30
I&O
05/22/24 05/23/24 05/24/24
06:59 06:59 06:59
Intake Total 3346.9 / 3444.4 2577.7 / 2577.7
Output Total 2230 / 2230 2004
Balance 1116.9 / 1214.4 572.7 / 572.7
[2024-05-23] MEDS: MYCAMINE 105 MG IV (11:14)
--- NOTE | 2024-05-23 12:26 | W.PN.GS2 ---
Addendum entered and electronically signed by Renato Colon MD 05/23/24 13:23:
Patient seen and examined. Agree with assessment plan as documented below.
Denies abdominal pain. No nausea or vomiting. Afebrile.
Gen: NAD
Abd: soft, NT/ND, non-peritoneal, IR drain with feculent outputs
Patient is a 73-year-old female presenting with abdominal wall infection/abscess and draining purulent sinus tract.
CT imaging confirms sizable deep subcutaneous air fluid collection around the fascial layer immediately adjacent to previously placed mesh.
PPD #2 IR drainage with enteric contents in drain indicating presence of fistulous tract. Cx with multiple organisms.
Afebrile now for >24 hours, pressors being weaned, HR stable
No leukocytosis. H/H stable.
Called and discussed Ms. Wagoner's current clinical situation with her [id number] and DPOA (Arielle Wagoner). Arielle states that her [id number] would not want aggressive measures for management such as surgery. Ms. Wagoner herself confirms this on
questioning today. No plans or role for surgery based on patients wishes. Continue with medical management..
Plan:
-- No plans for surgical intervention
-- Continue ABX, ID following
-- OK for pureed diet
-- GI ppx with PPI
-- Medical management as per primary team
Original Note:
Today's Communication / Plan
-
Continue IR drain and ABX
Assessment / Plan
-
73-year-old female presenting with abdominal wall infection/abscess and draining purulent sinus tract.
CT imaging confirms sizable deep subcutaneous air fluid collection around the fascial layer immediately adjacent to previously placed mesh.
PPD #2 IR drainage with enteric contents in drain indicating presence of fistulous tract. Cx with multiple organisms.
Afebrile now for >24 hours, pressors being weaned, HR stable
No leukocytosis. H/H stable.
No plans for surgery at this time given patient's dementia, DNR and stable abdominal examination without generalized peritonitis or even localized peritonitis there are no indications for urgent operative intervention which was discussed with her
[id number] who is her POA. Patient who is now more awake and conversive and also stating that she would never want any surgery.
Plan:
Continue ABX
ID following for ABX management
Ok for pureed diet
GI ppx with PPI
Medical management as per primary team
Subjective Data
-
Date of Service: May 23, 2024
Patient seen and examined at bedside with Dr. Colon. Denies n/v. Awake and conversive. Asking for breakfast. Denies pain. States that she would never want surgery.
Objective Data
-
Intake and Output
05/22/24 05/23/24 05/24/24
06:59 06:59 06:59
Intake Total 3346.9 / 3444.4 2577.7 / 2577.7
Output Total 2230 / 2230 2004 / 2004
Balance 1116.9 / 1214.4 572.7 / 572.7
Intake:
Oral fluids 220 / 220
IV fluids (Total) 2310.9 / 2358.4 1957.7 / 1957.7
LEVO 350.9 / 358.4 257.7 / 257.7
Nss 1,000 ml @ 80 mls/hr IV . 1959 1700 / 1700
[id number] [facility] Rx#:[id number]
IV piggybacks 1036.0 / 1086.0 150 / 150
Blood Product Amount Infused ( 250 / 250
mL)
Packed Rbc Leukoreduced Unit 250 / 250
[id number]
Output:
Drain Output (Total) 180 / 180 55 / 55
Abdomen Placed in IR 180 / 180 55 / 55
Urine, Voided 2049
Other:
How many times incontinent 1
SMALL amount urine
How many times incontinent 1
SATURATED amount urine
Vital Signs
Temp Pulse Resp BP Pulse Ox
98.7 F 65 17 118/64 91
05/23/24 07:45 05/23/24 08:30 05/23/24 08:30 05/23/24 08:30 05/23/24 06:30
Lab Results
05/23/24 04:14
05/23/24 04:14
Calcium 8.8 mg/dl (8.4-10.2) 05/23/24 04:14
Phosphorus 2.6 mg/dl (2.5-4.5) 05/23/24 04:14
Magnesium 2.2 mg/dl (1.6-2.3) 05/23/24 04:14
Total Bilirubin 1.2 mg/dl (0.2-1.3) 05/23/24 04:14
AST 11 U/L (14-36) L 05/23/24 04:14
ALT 10 U/L (0-35) 05/23/24 04:14
Alkaline Phosphatase 63 U/L (38-126) 05/23/24 04:14
Total Protein 4.9 g/dl (6.3-8.2) L 05/23/24 04:14
Albumin 2.4 g/dl (3.5-5.0) L 05/23/24 04:14
Physical Exam
-
Lethargic, NAD
ABD soft, NT, IR drain with enteric contents
--- NOTE | 2024-05-23 14:34 | PTCARENOTE ---
Pt more cooperative at this time, but states that she 'wants to go home'. Ate a few bites of lunch tray and will take sips of thickened water. Levophed remains off since ~1100. Pt now c/o left thigh pain, some mild swelling noted. Dr. Lopez notified,
US ordered. Left fem TLC dressing changed.
--- NOTE | 2024-05-23 15:02 | CM ---
CM reviewed chart, received consult for Hospice. Patient LTC resident at [facility]- per Yumiko at [facility], facility [facility] and [facility], facility can do a one time contract with another Hospice
agency if needed. CM placed call to patients sister in law, Arielle (POA). Per Arielle, aware that patient is requesting Hospice, would like to look into both Hospice agencies and run it by patients cousin Reinaldo. Arielle will be visiting patient tomorrow, CM
will meet with Arielle tomorrow and provide Hospice documentation for both agencies. Updated referral sent to [facility]. CM will continue to follow for all discharge planning needs.
Plan; Return to [facility] with Hospice, family to review Hospice agencies.
--- NOTE | 2024-05-23 16:12 | PTCARENOTE ---
Pt began yelling in her room for water. Upon entering the room the pt was then requesting her food tray she had previously refused. 1:1 supervision with meal, ate ~60% of her tray. After finishing her meal and tray removed pt then began yelling that
someone took her tray, informed pt that she had just finished her meal and asked if there was something specific she was looking for, pt yelled that someone 'took her jamie crackers and the stuff she puts in her water'. Explained to pt that she was
not at [facility] and that she is not allowed crackers on her current diet.
[2024-05-23 16:57] LABS: Hematocrit 26.4 % (37.0-47.0); Hemoglobin 8.6 g/dL (12.0-16.0); Mean Corp Hgb Conc. 32.6 g/dL (33.0-37.0); Mean Corpuscular Hgb 28.9 pg (27.0-31.0); Mean Corpuscular Volume 88.6 fL (81.0-99.0); Mean Platelet Volume 10.1 fL (7.4-10.4); Platelet Count 211 10^3/uL (130-400); Red Blood Cell Count 2.98 10^6/uL (4.20-5.40); Red Cell Dist. Width 18.4 % (11.5-14.5); White Blood Cell Count 3.9 10^3/uL (4.8-10.8)
[2024-05-23] MEDS: HEPARIN 25000 UNITS/250 ML IV (17:10)
--- NOTE | 2024-05-23 17:50 | PTCARENOTE ---
aware of US results. ~1715 Heparin gtts started at 1400units/hr per protocol.
[2024-05-23] MEDS: LIPITOR 40 MG PO (21:31)
--- NOTE | 2024-05-23 22:05 | PTCARENOTE ---
Received pt resting in bed, AAOx1. Thinks she is at home. ORTIZ but weak. SR on tele, HR 70-80s. BP stable off levophed, will monitor. AFebrile. On RA, spo2 94-97%. Lungs dim but CTA. + bowel sounds, round abd. Ate 75% dinner, pureed diet with
thickened liquids. Meds crushed in puree. Abdominal dsg c/d/i with L ANTONIO drain with brown output. Purewick in place, kendrick/yellow UO. L femoral TLC with heparin gtt and NS @ 80ml/hr infusing. PTT due 2315. Turning q2. Mouth care and CHG bath
provided.
[2024-05-23 23:23] LABS: APTT 132.2 Sec (23.4-35.0)
[2024-05-24] VITALS (47 sets, daily range): BP systolic 90–133; BP diastolic 41–86; BMI 29.3
--- NOTE | 2024-05-24 00:08 | PTCARENOTE ---
Pt. requiring levophed again to maintain MAP>65. See worklist. Currently at 5mcg. Pt. sleeping. HR 60s-70s.
PTT 132.2 - heparin gtt hold x1hr then decrease by 200units/hr.
[2024-05-24] MEDS: LEVOPHED 250 IV (02:49)
[2024-05-24] MEDS: MERREM 500 MG IV ×4 (03:30→22:31)
[2024-05-24] MEDS: STERILE WATER FOR INJECTION 10 ML IV ×4 (03:30→22:30)
[2024-05-24 06:18] LABS: Blood Urea Nitrogen 16 mg/dl (7-17); Calcium 8.9 mg/dl (8.4-10.2); Carbon Dioxide 26 mmol/L (22-30); Chloride 105 mmol/L (98-107); Estimated Creatinine Clearance 88 ml/min; Glucose 130 mg/dl (70-99); Potassium 3.4 mmol/L (3.5-5.1); Sodium 135 mmol/L (135-145); eGFR > 60.00
[2024-05-24 06:30] LABS: APTT 92.1 Sec (23.4-35.0)
--- NOTE | 2024-05-24 08:00 | W.PN.HOSP.TC ---
Today's Communication/Plan
-
see bold
Assessment / Plan
Assessment / Plan
73yo F with PMHx of dementia, HFpEF, HTN, hyporthyroidism, R temporal glioma s/p resection x2, volvulus s/p hemicolectomy and colostomy reversal, anemia, CAD, CVA, overactive bladder, Hx of Afib developed discharge from paraumbilical area with
wound, CT scan done as outpatient showing possible bowel perf, so patient sent to ER. Managed for abdominal cellulitis with abscess, possible enterocutaneous fistula and mesh infection
Gen: NAD, Awake and alert
Eyes: EOMI, PERRLA, no scleral icterus.
Neck: supple.
CV: remains RRR, +S1/S2, no m/r/g.
Resp: remains CTAB, no rales, wheezes, or rhonchi.
Abd: +BS, soft, NT, ND
Skin: No rashes.
Neuro: CN 2-12 intact, non-focal.
Psych: Normal mood and affect.
05/21/24 16:55 Fluid Body Fluid Culture - Preliminary
Escherichia coli
Staphylococcus species
05/21/24 16:55 Fluid Gram Stain - Preliminary
05/21/24 09:34 Abdomen Wound Culture - Preliminary
Escherichia coli
Gram negative bacilli
Streptococcus species
Diptheroids
05/21/24 09:34 Abdomen Gram Stain - Preliminary
05/20/24 16:18 Blood/Venous Blood Culture - Preliminary
No Growth in 72 hours- Final report to follow
05/20/24 16:18 Blood/Venous Blood Culture - Preliminary
No Growth in 72 hours- Final report to follow
05/20/24 23:54 Nose MRSA Screen - Final
No Methicillin Resistant Staphylococcus aureus isolated.
CT A/P: Previous anterior abdominal wall hernia repair. Currently, complex collection, consistent with abscess at the repair site, as described. Within the peritoneum adjacent to the posterior margin of the abscess, there are multiple loops of bowel
which appeared. To the region. No proximal obstruction. Cholelithiasis without CT evidence of acute cholecystitis. Constipation. Moderate to large fecal burden throughout the colon, most pronounced in the rectosigmoid colon. Age indeterminate mild
compression deformity of L5. Superior mild endplate compression deformity of L2, with increased sclerosis, suggesting possible acute or subacute component. Mild superior plate compression deformities of T12 and L1, age indeterminate, though likely
chronic.
Septic shock due to abdominal wall abscess with abdominal wall cellulitis with mesh infection:
-remote h/o abdominal hernia repair with mesh
-Possible fistulous communication to bowel
-Drain placed to abscess on 05/21/24, culture data above
-cont micafungin/meropenem as per ID
-wean levophed as tolerated (currently on 3mcg/min)
-surgery saw in c/s, conservative management as per agreement with family
LLE DVT:
-found on limited LLE U/S on 05/23/24
-cont heparin gtt
Other problems:
Cholelithiasis with gall bladder sludge
Dementia, advanced as per family
Chronic HFpEF: daily wts, I/Os
Hypokalemia: IV K
Hypothyroidism
Essential HTN
Mild hyponatremia
Acute on chronic Anemia of chronic disease: s/p 1U pRBCs, trend Hb
SCDs (due to anemia)
DNR/DNI
Pt is requesting hospice, c/s placed 05/23/24.
Total critical care time spent = 31 min
Anticipated Discharge: 24 - 48 hours
Subjective/Interval History
-
Date of Service: May 24, 2024
Patient refuses to answer questions today.
Objective Data
-
Labs:
Laboratory Results
05/23/24 05/24/24 05/24/24
23:01 05:39 11:30
WBC Pending
Hgb Pending
Hct Pending
Plt Count Pending
APTT 132.2 H 92.1 H Pending
Sodium 135
Potassium 3.4 L
Chloride 105
Carbon Dioxide 26
BUN 16
Creatinine 0.6
Glucose 130 H
Calcium 8.9
Vital Signs:
Vital Signs
Temp Pulse Resp BP Pulse Ox
98.4 F 66 16 129/57 99
05/24/24 07:00 05/24/24 07:30 05/24/24 07:30 05/24/24 07:30 05/24/24 06:00
I&O
05/23/24 05/24/24 05/25/24
06:59 06:59 06:59
Intake Total 2577.7 / 2690.2 2249.0 / 2249.0
Output Total 2004 520 / 520
Balance 572.7 / 685.2 1729.0 / 1729.0
[2024-05-24] MEDS: CELEXA 20 MG PO (08:12)
[2024-05-24] MEDS: SENOKOT-S 1 TABLET PO (08:12)
[2024-05-24] MEDS: PROTONIX IV 40 MG IV ×2 (08:12→19:45)
[2024-05-24] MEDS: NSS (PRESERVATIVE FREE) 10 ML IV ×2 (08:12→19:45)
[2024-05-24] MEDS: SYNTHROID 137 MCG PO (08:12)
[2024-05-24] MEDS: CLARITIN 10 MG PO (08:12)
[2024-05-24] MEDS: LAC HYDRIN, AM LACTIN LOTION 1 APPLIC TOPICAL ×2 (08:13→22:30)
[2024-05-24] MEDS: ZINC OXIDE OINTMENT 1 APPLIC TOPICAL ×2 (08:13→22:30)
[2024-05-24] MEDS: KCL 270 MEQ IV (08:17)
--- NOTE | 2024-05-24 08:53 | W.PN.ID1 ---
Addendum entered and electronically signed by Laura Eldridge MD 05/24/24 14:19:
Spoke with Arielle (sister in law VENESSA) and Smiley at their request, Smiley continues to endorse wanting hospice, Smiley in agreement. Hospice is consulted
AW
Original Note:
Date of Service
Date of Service: May 24, 2024
Today's Communication
patient requesting hospice and has multiple indications for it, family planning to come in later today
tolerating current therapies
Assessment / Plan
Abdominal wall infection
Suspected infected mesh
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
Anemia
Hyponatremia
Hx CVA
HTN
Hypothyroidism
Right temporal glioma
CAD
Overactive bladder
Recommendations:
Current collection cultures reveal presence of E. coli, 2nd GNR, staphlococcus, streptococcus, diptheroid
gram stain also with yeast
QTc acceptable
c/w micafungin
Continue with empiric meropenem pending sensitivities from second GNR - deescalate PRN
Doubt MRSA; discontinue further vancomycin for now. Will re-add if MRSA recovered. Staphylococcus from culture may be CONS
Await further culture data to guide further antimicrobial selection and potential de-escalation.
Patient indicates she wishes to transition to hospice care. I see that she has been intermittently refusing medications and meals. Mesh infections are challenging to manage, there is also suggestion of fistula. Clarifying whether one exists could
impact prognosis from the infection standpoint. I also note that she is functionally nonambulatory, requires assistance for her meals and ADLs. In my opinion she understands the consequences of her choice and given documentation from other
providers it seems that her choice is consistent through time.
Chief Complaint
-: Bacteremia and Other (abdominal wall mesh infection)
Subjective / Review of Systems
afebrile
bp stable
continues in her wish to pursue hospice
Vital Signs / Physical Exam
Vital Signs
Vital Signs
Temp Pulse Resp BP Pulse Ox
98.4 F 77 23 123/77 99
05/24/24 07:00 05/24/24 08:00 05/24/24 08:00 05/24/24 08:00 05/24/24 06:00
Physical Exam
Constitutional: No Acute Distress and Chronically Ill
Cardiovascular: Regular Rate and S1/S2; Negative Murmur or Rub
Pulmonary: Clear and Symmetric; Negative Wheezes or Rales
Gastrointestinal: Soft, Non Tender, Non Distended and Normal Bowel Sounds
Skin: Warm and Dry; Negative Rash or Jaundice
Objective Data
Lab Data
Lab Results
05/24/24 05:39
PT 14.7 Sec (11.4-14.6) H 05/20/24 16:18
INR 1.09 05/20/24 16:18
APTT 92.1 Sec (23.4-35.0) H 05/24/24 05:39
Estimated Creat Clear 88 ml/min 05/24/24 05:39
Lactic Acid 1.8 mmol/L (0.7-2.0) 05/20/24 16:18
Lactic Acid Cancelled 05/20/24 16:18
Total Bilirubin 1.2 mg/dl (0.2-1.3) 05/23/24 04:14
AST 11 U/L (14-36) L 05/23/24 04:14
ALT 10 U/L (0-35) 05/23/24 04:14
Alkaline Phosphatase 63 U/L (38-126) 05/23/24 04:14
Most recent labs reviewed.
Micro Results:
05/21/24 16:55 Body Fluid Culture - Preliminary
Fluid Escherichia coli
Staphylococcus species
Gram Stain - Preliminary
05/21/24 09:34 Wound Culture - Preliminary
Abdomen Escherichia coli
Gram negative bacilli
Streptococcus species
Diptheroids
Gram Stain - Preliminary
05/20/24 16:18 Blood Culture - Preliminary
Blood/Venous No Growth in 72 hours- Final report to follow
05/20/24 16:18 Blood Culture - Preliminary
Blood/Venous No Growth in 72 hours- Final report to follow
05/20/24 23:54 MRSA Screen - Final
Nose No Methicillin Resistant Staphylococcus aureus isolated.
Imaging:
05/20/2024 CT abdomen/pelvis with IV contrast: Previous anterior abdominal wall hernia repair noted. Currently a complex collection consistent with abscess at the repair site is noted. Within the peritoneum and adjacent to the posterior margin of
the abscess there are multiple loops of bowel which appeared to be adherent to the adjacent peritoneal margin. No evidence of bowel obstruction.
--- NOTE | 2024-05-24 08:58 | PTCARENOTE ---
Rec'd pt at 0700. Pt sleeping, easily awakens. Oriented to self, reoriented to place, time and situation. Pt more cooperative this am, sat up in bed to eat breakfast with supervision. Monitor SR. Levophed gtts at 5mcg/min, titrating down to keep MAP
>65. Heparin gtts infusing at 1200units/hr per protocol. Abd dressing C/D/I, drain to ANTONIO bulb with brown fluid. Purewick in place, incont for kendrick urine.
[2024-05-24 09:33] LABS: Hematocrit 27.4 % (37.0-47.0); Hemoglobin 8.6 g/dL (12.0-16.0); Mean Corp Hgb Conc. 31.4 g/dL (33.0-37.0); Mean Corpuscular Hgb 28.2 pg (27.0-31.0); Mean Corpuscular Volume 89.8 fL (81.0-99.0); Mean Platelet Volume 10.3 fL (7.4-10.4); Platelet Count 234 10^3/uL (130-400); Red Blood Cell Count 3.05 10^6/uL (4.20-5.40); Red Cell Dist. Width 18.6 % (11.5-14.5); White Blood Cell Count 5.2 10^3/uL (4.8-10.8)
[2024-05-24] MEDS: MYCAMINE 105 MG IV (10:33)
[2024-05-24] MEDS: NSS 1000 IV (10:33)
--- NOTE | 2024-05-24 10:42 | W.PN.GS2 ---
Addendum entered and electronically signed by Renato Colon MD 05/24/24 12:39:
Patient seen and examined. Agree with assessment plan as documented below.
No complaints. Denies pain. No nausea or vomiting. Afebrile.
Gen: NAD
Abd: soft, NT/ND, IR drain with feculent outputs
73-year-old female presenting with abdominal wall infection/abscess and draining purulent sinus tract. CT imaging confirms sizable deep subcutaneous air fluid collection around the fascial layer immediately adjacent to previously placed mesh.
PPD #3 IR drainage with enteric contents in drain indicating presence of fistulous tract. Cx with multiple organisms.
Afebrile now for >24 hours, pressors being weaned, HR stable
No leukocytosis, H/H stable.
Family and patient reasonably looking to plan hospice; goals of care discussed with patient and POA, both expressing no desire to pursue surgery at this time
Plan:
-- Continue ABX, ID following
-- Diet as tolerated
-- Medical management as per primary team
-- Please call with any questions or concerns
Original Note:
Today's Communication / Plan
-
Continue drain
Assessment / Plan
-
73-year-old female presenting with abdominal wall infection/abscess and draining purulent sinus tract. CT imaging confirms sizable deep subcutaneous air fluid collection around the fascial layer immediately adjacent to previously placed mesh.
PPD #3 IR drainage with enteric contents in drain indicating presence of fistulous tract. Cx with multiple organisms.
Afebrile now for >24 hours, pressors being weaned, HR stable
No leukocytosis. H/H stable.
Family and patient reasonably looking to plan hospice; goals of care discussed with patient and POA, both expressing no desire to pursue surgery at this time
Plan:
Continue ABX
ID following for ABX management
Ok for diet as tolerated
GI ppx with PPI
Medical management as per primary team
Subjective Data
-
Date of Service: May 24, 2024
Patient seen and examined at bedside. Offered no complaints.
Objective Data
-
Intake and Output
05/23/24 05/24/24 05/25/24
06:59 06:59 06:59
Intake Total 2577.7 / 2690.2 2249.0 / 2359.8 743.2 / 743.2
Output Total 2004 / 2004 520 / 520
Balance 572.7 / 685.2 1729.0 / 1839.8 743.2 / 743.2
Intake:
Oral fluids 220 / 220 120 / 120
IV fluids (Total) 1957.7 / 2045.2 2044.0 / 2154.8 420.7 / 420.7
Heparin 156 / 168 48 / 48
LEVO 257.7 / 265.2 128.0 / 146.8 52.7 / 52.7
Nss 1,000 ml @ 80 mls/hr IV . 1700 / 1780 1760 / 1840 320 / 320
[id number] Rx#:[id number]
IV piggybacks 150 / 175 205 / 205 202.5 / 202.5
Blood Product Amount Infused ( 250 / 250
mL)
Packed Rbc Leukoreduced Unit 250 / 250
[id number]
Output:
Drain Output (Total)
Abdomen Placed in IR
Urine, Voided 1949 / 1949 500 / 500
Other:
How many times incontinent 1
SMALL amount urine
How many times incontinent 2
SATURATED amount urine
Vital Signs
Temp Pulse Resp BP Pulse Ox
98.4 F 71 19 114/51 99
05/24/24 07:00 05/24/24 09:00 05/24/24 09:00 05/24/24 09:00 05/24/24 06:00
Lab Results
05/24/24 05:39
05/24/24 05:39
Calcium 8.9 mg/dl (8.4-10.2) 05/24/24 05:39
Phosphorus 2.6 mg/dl (2.5-4.5) 05/23/24 04:14
Magnesium 2.2 mg/dl (1.6-2.3) 05/23/24 04:14
Total Bilirubin 1.2 mg/dl (0.2-1.3) 05/23/24 04:14
AST 11 U/L (14-36) L 05/23/24 04:14
ALT 10 U/L (0-35) 05/23/24 04:14
Alkaline Phosphatase 63 U/L (38-126) 05/23/24 04:14
Total Protein 4.9 g/dl (6.3-8.2) L 05/23/24 04:14
Albumin 2.4 g/dl (3.5-5.0) L 05/23/24 04:14
Physical Exam
-
Awake, alert
NAD
ABD soft, NT, IR drain with enteric contents
[2024-05-24 11:55] LABS: APTT 75.1 Sec (23.4-35.0)
[2024-05-24] MEDS: HEPARIN 25000 UNITS/250 ML IV (12:43)
--- NOTE | 2024-05-24 14:52 | CM ---
CM met with patient and sister in law, Arielle, bedside, provided information regarding [facility] and [facility] (brochures). Sister in law will discuss with cousin, Reinaldo, and follow up with CM Saturday. CM will continue to follow for all discharge
planning needs.
Plan; return to [facility] with Hospice, family deciding on agency.
--- NOTE | 2024-05-24 15:51 | PTCARENOTE ---
1130-attempted to wean Levophed off, within an hour MAP <65, Levophed restarted at 1mcg/min, MAP 70's at this time. ~1400 Pt's sister in law/VENESSA Guzmán in to visit, updated on condition and plan of care by RN and Dr. Eldridge. graphic design manager also in to
speak with Arielle, rec'd info regarding hospice, Arielle to speak with other family members about options and follow up tomorrow regarding decision. Pt continues to be more pleasant and cooperative this afternoon. Ate lunch tray with supervision,
appetite improved. Pt incont for large soft/formed orellana stool, pericare performed. Abdominal dressing with drainage- changed. Pt sitting up in bed watching tv at this time.
[2024-05-24] MEDS: LIPITOR PO (22:56)
[2024-05-25] VITALS (28 sets, daily range): BP systolic 76–122; BP diastolic 42–71; BMI 29.7
[2024-05-25] MEDS: NSS 1000 IV ×2 (00:09→10:20)
--- NOTE | 2024-05-25 02:12 | PTCARENOTE ---
Received pt at 1900 resting in bed, AAOx1. ORTIZ but weak. SR on tele, HR 70-80s. On levophed gtt to maintain MAP>65- see worklist. AFebrile. On RA, spo2 94-97%. Lungs dim but CTA. + bowel sounds, round abd. Pureed diet with thickened liquids. Refused
any PO meds. Had a few sips of h20. Abdominal dsg c/d/i with L ANTONIO drain with brown output. Purewick changed, kendrick/yellow UO. L femoral TLC with heparin gtt, levo and NS @ 80ml/hr infusing. PTT due in AM. Turning q2. Refused mouth care, CHG bath
provided.
[2024-05-25] MEDS: STERILE WATER FOR INJECTION 10 ML IV ×2 (03:47→10:20)
[2024-05-25] MEDS: MERREM 500 MG IV ×2 (03:47→10:20)
[2024-05-25 04:05] LABS: Hematocrit 24.5 % (37.0-47.0); Hemoglobin 7.7 g/dL (12.0-16.0); Mean Corp Hgb Conc. 31.4 g/dL (33.0-37.0); Mean Corpuscular Hgb 28.1 pg (27.0-31.0); Mean Corpuscular Volume 89.4 fL (81.0-99.0); Mean Platelet Volume 9.6 fL (7.4-10.4); Platelet Count 206 10^3/uL (130-400); Red Blood Cell Count 2.74 10^6/uL (4.20-5.40); Red Cell Dist. Width 18.4 % (11.5-14.5); White Blood Cell Count 3.8 10^3/uL (4.8-10.8)
[2024-05-25 04:27] LABS: APTT 98.1 Sec (23.4-35.0)
[2024-05-25 05:08] LABS: Blood Urea Nitrogen 16 mg/dl (7-17); Calcium 8.6 mg/dl (8.4-10.2); Carbon Dioxide 25 mmol/L (22-30); Chloride 102 mmol/L (98-107); Estimated Creatinine Clearance 88 ml/min; Glucose 101 mg/dl (70-99); Potassium 3.5 mmol/L (3.5-5.1); Sodium 133 mmol/L (135-145); eGFR > 60.00
[2024-05-25] MEDS: SYNTHROID 137 MCG PO (08:57)
[2024-05-25] MEDS: PROTONIX IV 40 MG IV (08:57)
[2024-05-25] MEDS: CLARITIN 10 MG PO (08:57)
[2024-05-25] MEDS: CELEXA 20 MG PO (08:57)
[2024-05-25] MEDS: SENOKOT-S 1 TABLET PO (08:57)
[2024-05-25] MEDS: NSS (PRESERVATIVE FREE) 10 ML IV (08:58)
[2024-05-25] MEDS: LAC HYDRIN, AM LACTIN LOTION 1 APPLIC TOPICAL (08:59)
[2024-05-25] MEDS: ZINC OXIDE OINTMENT 1 APPLIC TOPICAL (08:59)
[2024-05-25] MEDS: HEPARIN 25000 UNITS/250 ML IV (09:03)
--- NOTE | 2024-05-25 09:36 | PTCARENOTE ---
pt received frm previous rn- aox1, agitated at times. am care provided. abdominal dressing changed- drainage noted. krish with brown drainage. purewick changed and in place. turned and repositioned, oral care provided. left sided weakness at baseline.
nsr on monitor, room air. no complaints at this time. all safety precautions in place, call vásquez within reach, bed alarm on and functioning. heparin gtt and ivf continue as per order.
--- NOTE | 2024-05-25 09:36 | W.PN.ID1 ---
Date of Service
Date of Service: May 25, 2024
Today's Communication
Continue antibiotics.
Assessment / Plan
Abdominal wall infection
Suspected infected mesh
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
Anemia
Hyponatremia
Hx CVA
HTN
Hypothyroidism
Right temporal glioma
CAD
Overactive bladder
Recommendations:
Current collection cultures reveal presence of E. coli, 2nd GNR, staphlococcus, streptococcus, diptheroid
gram stain also with yeast
QTc acceptable
c/w micafungin (d#3)
Continue with meropenem (d#4) pending sensitivities from second GNR
Add back vancomycin given recovery of MRSA. Follow levels closely to prevent renal toxicity.
Await further culture data to guide further antimicrobial selection and potential de-escalation.
Await family decision regarding goals of care and possible transition to hospice.
����������������������������������������������������������
Chief Complaint
-: Bacteremia and Other (abdominal wall mesh infection; suspected EC fistula)
Subjective / Review of Systems
Review of Systems: No Fever
Vital Signs / Physical Exam
Vital Signs
Vital Signs
Temp Pulse Resp BP Pulse Ox
99.6 F 98 15 113/65 94
05/25/24 03:28 05/25/24 09:00 05/25/24 09:00 05/25/24 09:00 05/25/24 09:31
Physical Exam
Constitutional: No Acute Distress, Comfortable, Chronically Ill and Non-toxic
Cardiovascular: Regular Rate and S1/S2; Negative S3/S4
Pulmonary: Clear and Symmetric; Negative Wheezes or Rales
Gastrointestinal: Soft, Non Tender, Non Distended and Normal Bowel Sounds
Skin: Warm and Dry; Negative Rash or Jaundice
Wound: Other (Abdominal wound dressed. Little periwound erythema.)
Neurological: Other (Arousable to voice and touch.)
Psychological: Confused
Objective Data
Lab Data
Lab Results
05/25/24 03:51
05/25/24 03:51
PT 14.7 Sec (11.4-14.6) H 05/20/24 16:18
INR 1.09 05/20/24 16:18
APTT 98.1 Sec (23.4-35.0) H 05/25/24 03:51
Estimated Creat Clear 88 ml/min 05/25/24 03:51
Lactic Acid 1.8 mmol/L (0.7-2.0) 05/20/24 16:18
Lactic Acid Cancelled 05/20/24 16:18
Total Bilirubin 1.2 mg/dl (0.2-1.3) 05/23/24 04:14
AST 11 U/L (14-36) L 05/23/24 04:14
ALT 10 U/L (0-35) 05/23/24 04:14
Alkaline Phosphatase 63 U/L (38-126) 05/23/24 04:14
Most recent labs reviewed.
Micro Results:
05/20/24 16:18 Blood Culture - Preliminary
Blood/Venous Coagulase neg. staphylococcus
Additional testing on request
Gram Stain - Preliminary
05/20/24 16:18 Blood Culture - Preliminary
Blood/Venous No Growth in 4 days- Final report to follow
05/21/24 09:34 Wound Culture - Final
Abdomen Escherichia coli
Klebsiella pneumoniae
Enterococcus faecalis
Streptococcus species
Diptheroids
Gram Stain - Final
05/21/24 16:55 Body Fluid Culture - Final
Fluid Escherichia coli
Staph aureus MRSA
Enterococcus faecalis
Gram Stain - Final
05/20/24 23:54 MRSA Screen - Final
Nose No Methicillin Resistant Staphylococcus aureus isolated.
Imaging:
05/20/2024 CT abdomen/pelvis with IV contrast: Previous anterior abdominal wall hernia repair noted. Currently a complex collection consistent with abscess at the repair site is noted. Within the peritoneum and adjacent to the posterior margin of
the abscess there are multiple loops of bowel which appeared to be adherent to the adjacent peritoneal margin. No evidence of bowel obstruction.
--- NOTE | 2024-05-25 09:42 | W.PN.HOSP.TC ---
Today's Communication/Plan
-
d/c on hospice
Assessment / Plan
Assessment / Plan
73yo F with PMHx of dementia, HFpEF, HTN, hyporthyroidism, R temporal glioma s/p resection x2, volvulus s/p hemicolectomy and colostomy reversal, anemia, CAD, CVA, overactive bladder, Hx of Afib developed discharge from paraumbilical area with
wound, CT scan done as outpatient showing possible bowel perf, so patient sent to ER. Managed for abdominal cellulitis with abscess, possible enterocutaneous fistula and mesh infection
Gen: NAD, Awake and alert
Eyes: EOMI, PERRLA, no scleral icterus.
Neck: supple.
CV: continues to remain RRR, +S1/S2, no m/r/g.
Resp: continues to remain CTAB, no rales, wheezes, or rhonchi.
Abd: +BS, soft, NT, ND
Skin: No rashes.
Neuro: CN 2-12 intact
Psych: Normal mood and affect.
05/20/24 16:18 Blood/Venous Blood Culture - Preliminary
Coagulase neg. staphylococcus
Additional testing on request
05/20/24 16:18 Blood/Venous Gram Stain - Preliminary
05/20/24 16:18 Blood/Venous Blood Culture - Preliminary
No Growth in 4 days- Final report to follow
05/21/24 09:34 Abdomen Wound Culture - Final
Escherichia coli
Klebsiella pneumoniae
Enterococcus faecalis
Streptococcus species
Diptheroids
05/21/24 09:34 Abdomen Gram Stain - Final
05/21/24 16:55 Fluid Body Fluid Culture - Final
Escherichia coli
Staph aureus MRSA
Enterococcus faecalis
05/21/24 16:55 Fluid Gram Stain - Final
05/20/24 23:54 Nose MRSA Screen - Final
No Methicillin Resistant Staphylococcus aureus isolated.
CT A/P: Previous anterior abdominal wall hernia repair. Currently, complex collection, consistent with abscess at the repair site, as described. Within the peritoneum adjacent to the posterior margin of the abscess, there are multiple loops of bowel
which appeared. To the region. No proximal obstruction. Cholelithiasis without CT evidence of acute cholecystitis. Constipation. Moderate to large fecal burden throughout the colon, most pronounced in the rectosigmoid colon. Age indeterminate mild
compression deformity of L5. Superior mild endplate compression deformity of L2, with increased sclerosis, suggesting possible acute or subacute component. Mild superior plate compression deformities of T12 and L1, age indeterminate, though likely
chronic.
Septic shock due to abdominal wall abscess with abdominal wall cellulitis with mesh infection:
-remote h/o abdominal hernia repair with mesh
-Possible fistulous communication to bowel
-Drain placed to abscess on 05/21/24, culture data above
-cont micafungin/meropenem/Vanco as per ID
-wean levophed as tolerated (currently on 3mcg/min)
-surgery saw in c/s, conservative management as per agreement with family
LLE DVT:
-found on limited LLE U/S on 05/23/24
-cont heparin gtt
Other problems:
Cholelithiasis with gall bladder sludge
Dementia, advanced as per family
Chronic HFpEF: daily wts, I/Os
Hypokalemia, resolved
Hypothyroidism
Essential HTN
Mild hyponatremia
Acute on chronic Anemia of chronic disease: s/p 1U pRBCs, trend Hb
SCDs (due to anemia)
DNR/DNI
Pt is requesting hospice, c/s placed 05/23/24. d/c today on hospice.
Total time spent on d/c = 39 min. This included today's physical exam, progress note, review of laboratory and diagnostic data, preparation of discharge documents and prescriptions, and discussions about the pt's hospital course and discharge plan
with the patient and other medical or surgical instrument maker involved in the patient's care.
Anticipated Discharge: Today
Subjective/Interval History
-
Date of Service: May 25, 2024
No new/acute complaints.
Objective Data
-
Labs:
Laboratory Results
05/25/24
03:51
WBC 3.8 L
Hgb 7.7 L
Hct 24.5 L
Plt Count 206
APTT 98.1 H
Sodium 133 L
Potassium 3.5
Chloride 102
Carbon Dioxide 25
BUN 16
Creatinine 0.5 L
Glucose 101 H
Calcium 8.6
Vital Signs:
Vital Signs
Temp Pulse Resp BP Pulse Ox
98.4 F 98 15 113/65 94
05/25/24 08:00 05/25/24 09:00 05/25/24 09:00 05/25/24 09:00 05/25/24 09:31
I&O
05/24/24 05/25/24 05/26/24
06:59 06:59 06:59
Intake Total 2249.0 / 2359.8 2774.0 / 2866.0 184 / 184
Output Total 520 / 520 1915 / 1915 500 / 500
Balance 1729.0 / 1839.8 859.0 / 951.0 -316 / -316
[2024-05-25] MEDS: MYCAMINE 105 MG IV (10:20)
--- NOTE | 2024-05-25 11:12 | PTCARENOTE ---
plan of care discussed with Dr. Lopez- d/c iv gtts per order- femoral line removed by [facility], pt comfort care, order d/c hospice at [facility].
--- NOTE | 2024-05-25 11:13 | CM ---
CM following re: discharge planning.
Reviewed pt's chart, met with pt.
According to MD pt is medically stable to be discharged today with hospice care. Pt's sister in law Arielle CLIFFORD is aware, expressed her agreement. IMM reviewed, placed on chart, pt has a copy.
Hospice consult noted. CM spoke to [facility] seo coordinator and she confirmed that they [facility] - one of their preferred contracted provider. CM spoke to pt's sister-in law Arielle CLIFFORD and she agrees with [facility].
A referral to [facility] hospice made. Updated pt's clinical faxed to [facility].
CM spoke to [facility] seo coordinator and she confirmed that [facility] cashiers supervisor will be at their SNF to sign pt in on hospice. Requested transportation time - 2:30 p.m.
CM to arrange ambulance transportation with pickle sorter time 2:30p.m. PMNC completed and left with . Out of hospital DNR form completed and signed by .
Both pt's sister in , RN, [facility] cashiers supervisor and [facility] seo coordinator are aware of discharge time.
[facility] nursing report: [phone]
Discharge instructions fax: [phone]
D/C plan: return back to [facility] with [facility] hospice.
--- NOTE | 2024-05-25 13:01 | W.DCSUMMARY ---
Discharge Summary
Discharge Data
Date of Admission: 05/20/24
Date of Discharge: 05/25/24
-
Pending Results: No
Hospital Course
Primary diagnoses:
Septic shock due to abdominal wall abscess with abdominal wall cellulitis with mesh infection
Left lower extremity DVT
Secondary diagnoses:
Cholelithiasis with gall bladder sludge
Dementia, advanced, likely Alzheimer's
Chronic heart failure with preserved ejection fraction
Hypokalemia
Hypothyroidism
Essential hypertension
Mild hyponatremia
Acute on chronic anemia of chronic disease
Nonobstructive coronary disease
h/o cerebrovascular accident
Overactive bladder
Right temporal glioma s/p resection x 2
h/o volvulus status post left hemicolectomy and subsequent ostomy reversal with postoperative A-fib
Consults:
Infectious disease
General Surgery
Pulmonary/critical care
Imaging:
CT A/P: Previous anterior abdominal wall hernia repair. Currently, complex collection, consistent with abscess at the repair site, as described. Within the peritoneum adjacent to the posterior margin of the abscess, there are multiple loops of bowel
which appeared. To the region. No proximal obstruction. Cholelithiasis without CT evidence of acute cholecystitis. Constipation. Moderate to large fecal burden throughout the colon, most pronounced in the rectosigmoid colon. Age indeterminate mild
compression deformity of L5. Superior mild endplate compression deformity of L2, with increased sclerosis, suggesting possible acute or subacute component. Mild superior plate compression deformities of T12 and L1, age indeterminate, though likely
chronic.
Hospital course: 73-year-old female who presented with a chief complaint of abnormal CT scan as outlined in the H&P done on admission. The patient had a remote history of abdominal hernia repair with mesh. Patient had discharge from her
superficial abdominal wound. She had an outpatient CT scan the abdomen pelvis that showed concern for bowel perforation. CT abdomen pelvis done here above with complex collection consistent with abscess at the hernia repair site. The patient had
septic shock due to abdominal wall abscess with abdominal wall cellulitis with mesh infection and was placed on vancomycin and Zosyn. She required Levophed for blood pressure support. She had a drain placed to abscess on 05/21/24. Wound and body
fluid cultures were polymicrobial. Patient was on broad-spectrum antibiotics. Patient was seen in consultation by surgery and, as per agreement with the family, no surgical intervention was pursued. The family wanted conservative management only.
The patient was found to have left lower extremity DVT on ultrasound on 05/23/24 and was placed on a heparin drip. The patient and family decided on hospice and the patient was discharged to hospice and stable condition.
Discharge Plan
-
Patient Disposition: Half-Way/SNF
Discharge Diagnosis/Procedures: Septic shock due to abdominal wall abscess with abdominal wall cellulitis with mesh infection
Condition: Fair
Diet: Other diet
Additional Diets: IDDSI-4, pureed, nectar thick liquids
Activity: With assistance
Driving Restrictions: No driving
Other Services: Hospice
Activity Restrictions/Additional Instructions:
Wound Care Instructions Abdominal wound- Clean gently with normal saline or soap and water. Apply no-sting barrier around and cover with dry dressing. Change daily and PRN.
Right buttock- Clean with normal saline or soap and water. Apply silicone border foam. Change Q 48 hours and PRN
Bilateral Heels- No sting barrier and adhesive foam. Change Q72 hours and PRN if loose or soiled.
Referrals:
Marito Gillis MD [Family Provider] - in less than 1 week
Prescriptions:
New
levothyroxine 137 mcg Tablet
137 mcg PO DAILY @ 0600 Qty: 0 0RF
Continued
atorvastatin 40 mg Tablet
40 mg PO HS
guaifenesin 100 mg/5 mL Liquid
100 mg PO Q6HPRN PRN (Reason: cough)
citalopram 20 mg Tablet
20 mg PO DAILY
magnesium hydroxide 400 mg/5 mL Suspension
30 ml PO Q00JCIM PRN (Reason: no bm 3 days)
bisacodyl 10 mg Suppository
10 mg NC DAILYPRN PRN (Reason: no bm 24 hours after mom)
Fleet Enema 19-7 gram/118 mL Enema
118 ml NC DAILYPRN PRN (Reason: no bm 24 hours after bisacodyl)
ammonium lactate 12 % Cream
1 applic TOPICAL BID
Icy Hot (menthol) 5 % Adhesive Patch,Medicated
1 patch TOPICAL DAILY
zinc oxide 10 % Cream
1 applic TOPICAL BID
levocetirizine 5 mg Tablet
5 mg PO DAILY
acetaminophen 325 MG tablet
650 mg PO Q4HPRN MDD 3000 mg PRN (Reason: mild pain/fever>101)
Discontinued
levothyroxine 150 mcg Tablet
150 mcg PO DAILY
aspirin 81 mg Tablet,Chewable
81 mg PO DAILY
furosemide 20 mg Tablet
20 mg PO MOWEFR
Discharge Orders:
Discharge Patient (As Directed); Ordered 05/25/24
Ordered By: Fabrice Lopez
Discharge Date and Time
Print Language: FAROESE
--- NOTE | 2024-05-25 13:08 | HOSPNOTE ---
Patient will be going back to [facility] with their preferred provider hospice agency.
--- NOTE | 2024-05-25 13:54 | PTCARENOTE ---
incontinence care provided. sister in law at bedside with freelance patternmaker. report given to Anali at [facility]. ivs removed, pressure dressing applied.
--- NOTE | 2024-05-25 15:15 | PTCARENOTE ---
pt taken via ems sent with paper work. per surgery post doc fellowship send pt with krish drain- receiving rn at [facility]. pt sent with all belongings
== END 2024-05-25 15:08 | DRG 919 ==
LOC: ICU 22:01
PROVIDERS: Hospitalist; Internal Medicine; Nurse Practitioner Family; Nurse Practitioner Gerontology; Radiology Vascular & Interventional Radiology; ADMITTING PHYSICIAN Hospitalist; ATTENDING PHYSICIAN Internal Medicine; CONSULT PHYSICIAN Internal Medicine Critical Care Medicine; CONSULT PHYSICIAN Surgery; EMERGENCY PHYSICIAN Student in an Organized Health Care Education/Training Program; FAMILY PHYSICIAN Internal Medicine; OTHER PHYSICIAN Internal Medicine Infectious Disease
PROC: 0W9G30Z Drainage of Peritoneal Cavity with Drainage Device, Percutaneous Approach (ICD-10-PCS; 2024-05-21)
PROC: 30243N1 Transfusion of Nonautologous Red Blood Cells into Central Vein, Percutaneous Approach (ICD-10-PCS; 2024-05-22)
DX: T85.79XA Infection and inflammatory reaction due to other internal prosthetic devices, implants and grafts, initial encounter (principal); A41.81 Sepsis due to Enterococcus; R65.21 Severe sepsis with septic shock; I50.32 Chronic diastolic (congestive) heart failure; I13.0 Hypertensive heart and chronic kidney disease with heart failure and stage 1 through stage 4 chronic kidney disease, or unspecified chronic kidney disease; L02.211 Cutaneous abscess of abdominal wall; F02.83 Dementia in other diseases classified elsewhere, unspecified severity, with mood disturbance; E87.1 Hypo-osmolality and hyponatremia; L03.311 Cellulitis of abdominal wall; I82.412 Acute embolism and thrombosis of left femoral vein; F02.84 Dementia in other diseases classified elsewhere, unspecified severity, with anxiety; N18.9 Chronic kidney disease, unspecified; D63.8 Anemia in other chronic diseases classified elsewhere; J42 Unspecified chronic bronchitis; E03.9 Hypothyroidism, unspecified; I25.10 Atherosclerotic heart disease of native coronary artery without angina pectoris; N32.81 Overactive bladder; F32.A Depression, unspecified; K80.20 Calculus of gallbladder without cholecystitis without obstruction; G30.9 Alzheimer's disease, unspecified; E88.09 Other disorders of plasma-protein metabolism, not elsewhere classified; E26.9 Hyperaldosteronism, unspecified; E87.6 Hypokalemia; K59.00 Constipation, unspecified; B96.20 Unspecified Escherichia coli [E. coli] as the cause of diseases classified elsewhere; B95.5 Unspecified streptococcus as the cause of diseases classified elsewhere; B95.7 Other staphylococcus as the cause of diseases classified elsewhere; B96.1 Klebsiella pneumoniae [K. pneumoniae] as the cause of diseases classified elsewhere; Y83.2 Surgical operation with anastomosis, bypass or graft as the cause of abnormal reaction of the patient, or of later complication, without mention of misadventure at the time of the procedure; Y92.9 Unspecified place or not applicable; Z66 Do not resuscitate; Z86.73 Personal history of transient ischemic attack (TIA), and cerebral infarction without residual deficits; Z79.890 Hormone replacement therapy; Z79.82 Long term (current) use of aspirin; Z90.49 Acquired absence of other specified parts of digestive tract; Z85.89 Personal history of malignant neoplasm of other organs and systems; Z80.9 Family history of malignant neoplasm, unspecified; Z85.841 Personal history of malignant neoplasm of brain
CPT/HCPCS: 36556; 49406; 71045; 74177; 80048; 80053; 81003; 82607; 82728; 82746; 82805; 83540; 83550; 83605; 83615; 83735; 84100; 84439; 84443; 84484; 85014; 85018; 85025; 85027; 85045; 85610; 85730; 86850; 86900; 86901; 86920; 87015; 87040; 87070; 87077; 87147; 87186; 87205; 92526; 92610; 93005; 93306; 93971; 96361; 96365; 96366; 96367; 99152; 99153; 99291; P9016; P9047; Q9967